=== PATIENT | female | born 1955 | race Caucasian/White ===

== ENCOUNTER → 2019-02-07 08:26 | Outpatient (CLI) | payer OTHER, SELFPAY ==
--- NOTE | 2019-02-07 | DI.MG.S_ITS ---
BILATERAL DIGITAL SCREENING MAMMOGRAM 3D/2D WITH CAD: 02/07/2019 CLINICAL: Routine screening. Comparison is made to exams dated: 10/11/2017 mammogram, 02/26/2013 mammogram, 12/07/2011 mammogram, and 12/01/2010 mammogram - [facility]. The tissue of both breasts is heterogeneously dense. This may lower the sensitivity of mammography. Current study was also evaluated with a Computer Aided Detection (CAD) system. No significant masses, calcifications, or other findings are seen in either breast. There has been no significant interval change. IMPRESSION: NEGATIVE There is no mammographic evidence of malignancy. A 1 year screening mammogram is recommended. This exam was interpreted at Station ID: [id number]. NOTE: For mammograms, a report in lay terms will be sent to the patient. Approximately 15% of breast malignancies will not be visualized mammographically. In the management of a palpable breast mass, a negative mammogram must not discourage biopsy of a clinically suspicious lesion. Electronically Signed By: Eben wade/amador:02/07/2019 13:02:29 letter sent: Normal Exam ACR BI-RADS Category 1: Negative [id number]
== END ==
PROVIDERS: PCP Family Medicine; Visit Provider Family Medicine
DX: Z12.31 Encounter for screening mammogram for malignant neoplasm of breast (principal)
CPT/HCPCS: 77063; 77067

== ENCOUNTER → 2019-06-11 08:50 | Outpatient (CLI) | payer OTHER, SELFPAY ==
--- NOTE | 2019-06-11 | DI.RAD.S_ITS ---
PROCEDURE: FL UPPER GI W AIR INDICATIONS: Dysphagia, unspecified COMPARISON: [facility], , CHEST 2 VIEW, 11/08/2012, 10:38. FINDINGS: KUB: Preprocedural principal investigator film demonstrates a normal bowel gas pattern. No suspicious abdominal calcifications. Visualized solid organ contours appear normal. Bony structures appear unremarkable. Esophagus: Esophageal mucosa is normal on air-contrast views. On single-contrast views, there is normal esophageal peristalsis. No strictures, extrinsic mass effects, or diverticula. Small hiatal hernia. No gastroesophageal reflux was elicited during exam. There is normal transit of a calibrated barium tablet through the esophagus. Stomach: The stomach is normally distensible, with normal rugal fold thickness. No mucosal masses or ulcers. Pylorus and duodenal bulb appear normal in morphology. Duodenal folds are normal in thickness as well. IMPRESSION: 1. Small sliding hiatal hernia. 2. Otherwise normal upper GI exam. 3. The patient reports intermittent difficulty swallowing in the area of the throat. If clinical symptoms persist, modified barium swallow with speech pathology may be helpful. Dictated by: Leonarda Rivera M.D. on 06/11/2019 at 11:20 Approved by: Leonarda Rivera M.D. on 06/11/2019 at 11:23
== END ==
PROVIDERS: PCP Family Medicine; Visit Provider Family Medicine
DX: R13.10 Dysphagia, unspecified (principal); K44.9 Diaphragmatic hernia without obstruction or gangrene
CPT/HCPCS: 74247

== ENCOUNTER → 2019-11-21 09:27 | Outpatient (CLI) | payer OTHER, SELFPAY | PROVIDERS: PCP Family Medicine; Referring Provider Family Medicine; Visit Provider Family Medicine | DX: Z13.820 Encounter for screening for osteoporosis (principal); M85.851 Other specified disorders of bone density and structure, right thigh; Z78.0 Asymptomatic menopausal state; Z87.891 Personal history of nicotine dependence | CPT/HCPCS: 77080 ==

== ENCOUNTER 2020-07-13 15:37 | Emergency (ER) | payer OTHER, SELFPAY ==
[2020-07-13] VITALS (9 sets, daily range): BP systolic 146–175; BP diastolic 69–88; PULSE 68–104; RESP 10–34; TEMP 36.8; O2SAT 94–99; BMI 28.3
--- NOTE | 2020-07-13 15:49 | DI.RAD.S_ITS ---
PROCEDURE: XR WRIST LT 2V INDICATIONS: l wrist deformity TECHNIQUE: 2 views of the wrist were acquired. COMPARISON: None. FINDINGS: Bones: There is a prominently displaced distal radius fracture, with dorsal angulation and partial overlapping of bony fragments. Comminution is seen, with intra-articular involvement. No associated ulnar styloid fracture is seen. No radiocarpal fracture is seen. Age-appropriate bony degenerative changes are seen, which are worst involving the 1st carpometacarpal joint. Soft tissues: No suspicious soft tissue calcifications. IMPRESSION: Dorsally displaced distal radius fracture, with intra-articular involvement and partial overlapping of bony fragments. Dictated by: Davie Madden M.D. on 07/13/2020 at 15:20 Approved by: Davie Madden M.D. on 07/13/2020 at 15:21
--- NOTE | 2020-07-13 16:18 | ED.UPPEXIN ---
HPI - Extremity Injury (Upper) <NAYA Singletary - Last Filed: 07/14/20 00:29> General Chief Complaint: Extremity Injury, Upper Stated Complaint: LEFT WRIST INJURY Time Seen by Provider: 07/13/20 15:54 Source: patient Mode of arrival: Ambulatory Limitations: no limitations History of Present Illness HPI narrative: This is a 65 year old female, former smoker, who has history of hypertension presents to ED with daughter in-law with chief complain of left wrist, non dominant hand, pain and deformity after she fell off of granddaughter's Hover board about one 1 hour ago. Patient reports this an isolated injury and denies hitting her head or injuries to other areas. Patient denies open skin associated with wrist injury. Patient reports intact sensation and is able to move fingers minimally due to pain radiating into wrist. Patient denies history of previous injury to left wrist or hand. Related Data Home Medications Medication Instructions Recorded Confirmed lisinopril-hydrochlorothiazide tab 07/13/20 Previous Rx's Medication Instructions Recorded hydrocodone-acetaminophen [[place]] 1 tab PO Q4-6H PRN #14 tab 07/13/20 Allergies Allergy/AdvReac Type Severity Reaction Status Date / Time No Known Drug Allergies Allergy Verified 07/13/20 16:35 Review of Systems <NAYA Singletary - Last Filed: 07/14/20 00:29> Review of Systems Narrative: General: Denies fever, chills, fatigue, malaise, sweats. Respiratory: Denies dyspnea, cough, wheezing, hemoptysis, sputum. Cardiovascular: Denies chest pain, palpitations, orthopnea, edema. Gastrointestinal: Denies nausea, vomiting, abdominal pain, diarrhea, constipation, melena. Musculoskeletal: See HPI Skin: Denies rash, skin lesions, or other. Patient History <NAYA Singletary - Last Filed: 07/14/20 00:29> Medical History Hypertension (Acute) Social History Smoking Status: Never smoker Smoking Status: Never smoker alcohol intake frequency: 0-2 drinks per day Substance Use Type: does not use Exam <NAYA Singletary Last Filed: 07/14/20 00:29> Narrative Exam Narrative: General appearance: well developed, well nourished, in moderate distress from pain. Head: normocephalic, atraumatic, no scalp lesions, non-tender. ENT: Hearing grossly intact. Airway patent. Neck/Thyroid: neck supple, full range of motion, no visible masses or meningeal signs. No JVD, non-tender without lymphadenopathy. Skin: no suspicious rashes, lesions over visible areas. Warm and dry and appropriate color for ethnicity. Heart: no clubbing, no cyanosis, no edema. S1 and S2 normal. RRR w/o murmurs, clicks, or bruits. Lungs: Breathing even and unlabored. No stridor. No accessory muscles used. Able to speak in full sentences. Chest: normal shape and expansion. Abdomen: non-obese, non-distended. Neurologic: alert and oriented. Cognitive exam, BREAK OUT WORKER and PNS grossly intact on informal exam. Psych: good eye contact, normal affect. Initial Vital Signs Initial Vital Signs: Vital Signs Temperature 98.2 F 07/13/20 15:40 Pulse Rate 68 07/13/20 15:40 Respiratory Rate 18 07/13/20 15:40 Blood Pressure 146/69 H 07/13/20 15:40 Pulse Oximetry 99 07/13/20 15:40 Extrem Left upper extremity: elbow/forearm Details: normal to inspection; no tenderness and no swelling, wrist Details: abnormal to inspection, tenderness, swelling, abnormal ROM Details: held in an abnormal fashion, pain with active ROM and pain with passive ROM, ecchymosis (Distal radial), deformity Details: bayonet, normal vascular exam and radial pulse present; no unusual warmth, no abrasions and no lacerations and hand Details: neurosensory exam normal and vascular exam Details: radial pulse present and normal capillary refill <Jorge Marcos DO - Last Filed: 07/14/20 07:41> Initial Vital Signs Initial Vital Signs: Vital Signs Temperature 98.2 F 07/13/20 15:40 Pulse Rate 68 07/13/20 15:40 Respiratory Rate 18 07/13/20 15:40 Blood Pressure 146/69 H 07/13/20 15:40 Pulse Oximetry 99 07/13/20 15:40 Procedures <STANLEY SingletaryP - Last Filed: 07/14/20 00:29> Orthopedic Splinting/Casting Injury #1: Side: left Upper Extremity Injury Location: wrist Upper Extremity Immobilizer: sling/shoulder immobilizer and sugar tong splint Post splinting neuro exam: intact Post splinting vascular exam: intact Placed by: Provider Procedural Sedation Consent signed: Yes Time out performed: Yes Indication: fracture/dislocation reduction ASA Class: I Mallampati Airway Classification: Class I Time of Last PO Intake: 15:30 Preparation: clinical research monitor applied, pulse oximeter, capnometry used, supplemental O2 applied, suction/airway equipment at bedside and IV secured IV Propofol dose (mg): 80 Intraservice time/total sedation time (min): 5 ED Sedation Level: Moderate (Concious) Patient Tolerated Procedure: Well Complications: none Additional Comments: Procedural sedation and closed reduction completed by Dr. Marcos. Scores <Anton Gely [facility] - Last Filed: 07/14/20 00:29> GCS [place] coma scale eye opening: Spontaneous [place] coma scale verbal response: Orientated [place] coma scale motor response: Obey commands [place] coma scale total score: 15 Course <Anton Gely [facility] - Last Filed: 07/14/20 00:29> Orders Ordered: Discontinued Medications Hydrocodone Bitart/Acetaminophen ([place] 5/325) 1 tab PO NOW ONE Stop: 07/13/20 19:18 Last Admin: 07/13/20 19:21 Dose: 1 tab Documented by: ZAYRA Morphine Sulfate (Morphine) 4 mg IV NOW ONE Stop: 07/13/20 16:19 Last Admin: 07/13/20 16:30 Dose: 4 mg Documented by: ZAYRA Propofol (Diprivan) 70 mg 1 mg/kg (70 mg) IV NOW ONE Stop: 07/13/20 18:12 Last Admin: 07/13/20 18:43 Dose: 70 mg Documented by: ZAYRA Consultations Consultation #1: Dr. Gonsalez consulted with physical findings, x-ray results. He recommended closed reduction and splint affected extremity and have her follow-up at the clinic. Time: 16:45 Vital Signs Vital signs: Vital Signs - 8 hr 07/13/20 16:47 07/13/20 18:38 07/13/20 18:47 Pulse Rate 85 100 H 92 H Respiratory Rate 18 10 L 28 H Blood Pressure 172/79 H 156/74 H Blood Pressure [Right Arm] 175/86 H Pulse Oximetry 99 94 96 07/13/20 18:50 07/13/20 18:51 07/13/20 18:55 Pulse Rate 98 H 84 96 H Respiratory Rate 34 H 16 Blood Pressure 151/79 H 151/76 H Blood Pressure [Right Arm] Pulse Oximetry 95 94 07/13/20 19:00 07/13/20 19:05 Pulse Rate 104 H 98 H Respiratory Rate Blood Pressure 152/88 H 149/84 H Blood Pressure [Right Arm] Pulse Oximetry 95 94 <Jorge Marcos DO - Last Filed: 07/14/20 07:41> Orders Ordered: Discontinued Medications Hydrocodone Bitart/Acetaminophen ([place] 5/325) 1 tab PO NOW ONE Stop: 07/13/20 19:18 Last Admin: 07/13/20 19:21 Dose: 1 tab Documented by: ZAYRA Morphine Sulfate (Morphine) 4 mg IV NOW ONE Stop: 07/13/20 16:19 Last Admin: 07/13/20 16:30 Dose: 4 mg Documented by: ZAYRA Propofol (Diprivan) 70 mg 1 mg/kg (70 mg) IV NOW ONE Stop: 07/13/20 18:12 Last Admin: 07/13/20 18:43 Dose: 70 mg Documented by: ZAYRA Vital Signs Vital signs: Vital Signs - 8 hr 07/13/20 16:47 07/13/20 18:38 07/13/20 18:47 Pulse Rate 85 100 H 92 H Respiratory Rate 18 10 L 28 H Blood Pressure 172/79 H 156/74 H Blood Pressure [Right Arm] 175/86 H Pulse Oximetry 99 94 96 07/13/20 18:50 07/13/20 18:51 07/13/20 18:55 Pulse Rate 98 H 84 96 H Respiratory Rate 34 H 16 Blood Pressure 151/79 H 151/76 H Blood Pressure [Right Arm] Pulse Oximetry 95 94 07/13/20 19:00 07/13/20 19:05 Pulse Rate 104 H 98 H Respiratory Rate Blood Pressure 152/88 H 149/84 H Blood Pressure [Right Arm] Pulse Oximetry 95 94 MDM - Extremity Injury (Upper) <NAYA Singletary - Last Filed: 07/14/20 00:29> Differential Diagnosis Differential diagnosis: Likely fracture of wrist Medical Records Attestation: I reviewed the patient's medical records. Lab Data Attestation: I reviewed the patient's lab results. Labs: Lab Results 07/13/20 Range/Units 17:00 COVID-19 PCR Negative (Negative) Point of Care Testing Test Results Negative Imaging Data XR-Wrist LT: Radiologist's Impression: [address] [address] XRay Report Signed Patient: Dana Becerra [facility]#: [id number] : [id number] Age/Sex: 65 / FDate of Service: 07/13/20 Loc: ED Accession Number: [id number] Procedure: XR wrist LT 2V Ordering Provider: Anton Hong PROCEDURE: XR WRIST LT 2V INDICATIONS: l wrist deformity TECHNIQUE: 2 views of the wrist were acquired. COMPARISON: None. FINDINGS: Bones: There is a prominently displaced distal radius fracture, with dorsal angulation and partial overlapping of bony fragments. Comminution is seen, with intra-articular involvement. No associated ulnar styloid fracture is seen. No radiocarpal fracture is seen. Age-appropriate bony degenerative changes are seen, which are worst involving the 1st carpometacarpal joint. Soft tissues: No suspicious soft tissue calcifications. IMPRESSION: Dorsally displaced distal radius fracture, with intra-articular involvement and partial overlapping of bony fragments. Dictated by: Davie Madden M.D. on 07/13/2020 at 15:20 Approved by: Davie Madden M.D. on 07/13/2020 at 15:21 XR-Wrist LT #2 post reduction: Radiologist's Impression: [address] [address] XRay Report Signed Patient: Dana Becerra [facility]#: [id number] : [id number] Age/Sex: 65 / FDate of Service: 07/13/20 Loc: ED Accession Number: [id number] Procedure: XR wrist LT 2V Ordering Provider: Jorge Marcos D.O. PROCEDURE: XR WRIST LT 2V INDICATIONS: post reduction TECHNIQUE: 2 views of the wrist were acquired. COMPARISON: [facility], CR, XR WRIST LT 2V, 07/13/2020, 15:58. FINDINGS: Bones: A fiberglass splint is present, which obscures fine bony detail. Postreduction images of the previously demonstrated comminuted fracture of the distal radius demonstrates improved alignment. The minimally displaced fracture of the ulnar styloid tip appears unchanged. Soft tissues: No suspicious soft tissue calcifications. Soft tissue edema is seen surrounding the wrist. IMPRESSION: Improved alignment of the previously seen comminuted distal radial fracture. Unchanged minimally displaced ulnar styloid fracture. Dictated by: Cruz Lane M.D. on 07/13/2020 at 19:03 Approved by: Cruz Lane M.D. on 07/13/2020 at 19:05 [facility] Narrative Medical decision making narrative: This is a 65 year female who presents to ED with isolated injury to non dominant hand, left wrist deformity and pain after she had FOOSH after falling off [employer]. No skin injury associated with this. Patient has intact sensation and radial pulse with brisk cap refill. She had limited active range of motion in left wrist and fingers due to pain. Initial x-ray shows prominently displaced distal radial fracture with dorsal angulation and partial overlapping a bony fragment with intra-articular involvement. Dr. Marcos consulted with x-ray test and physical finding. Closed reduction was done with procedural sedation by Dr. Marcos. Affected arm was splinted with sugar tong. Patient reports improved discomfort with brisk cap refill and intact mobility to her fingers. Post x-ray tests improved alignment of the previously seen community distal radial fracture and minimally displaced fracture of the ulna styloid tip. Dr. Gonsalez consulted and recommended to follow up at the clinic after closed reduction has been done. Patient discharged to home with [place] for severe pain with narcotic pain medication precautions. Patient advised RICE therapy and return precautions discussed with patient which she verbalized understanding in agreement with the treatment plan. Sling has been applied on affected arm. <Jorge Marcos, DO - Last Filed: 07/14/20 07:41> Lab Data Labs: Lab Results 07/13/20 Range/Units 17:00 COVID-19 PCR Negative (Negative) Point of Care Testing Test Results Negative Discharge Plan Departure Patient Disposition: Home Clinical Impression: Closed fracture distal radius and ulna Qualifiers: Encounter type: initial encounter Laterality: left Qualified Code(s): S52.502A - Unspecified fracture of the lower end of left radius, initial encounter for closed fracture Discharge Date/Time: 07/13/20 19:33 Instructions: DI for Wrist Fracture Activity Restrictions/Additional Instructions: You have been diagnosed with [dorsally displaced distal radius fracture with intra-articular involvement on non dominant left wrist. Minimally displaced ulnar styloid fracture. Fracture has been reduced by procedural sedation]. What to do: *Take your medications as directed. You can take xcit-mpi-vheaqpy Tylenol and or Motrin as needed for discomfort. Tylenol 650-1000 mg up to 3 to 4 times a day as needed for pain. Ibuprofen 400-600 mg as needed for pain with food to decrease GI irritations. For severe pain you can use [place] (has 325mg of Tylenol mixed) 1 tab every 6-8 hours as needed. [place] is narcotic pain medication so please do not drive, drink alcohol, or operate heavy equipments since he can cause sedation. Also, he can cause constipation so please take additional fluid and high-fiber diet. Can also take [id number]-[id number] stool softener to prevent constipation. Adult can take upto 8528-3271 mg of Tylenol products within 24 hour. Red Oak has been transmitted to [facility]. *Follow up with your primary care provider/[facility] in 2-3 days, call for an appointment. Let them know you were seen in the ED and that we asked you to be seen in follow up. *Return to ED if you have any new, worsening, or concerning symptoms, such as [worsening pain, tingling/numbness/weakness on affected arm, chest pain, breathing difficulty, unable to tolerate fluids, fever, or any acute concerns]. Prescriptions: New hydrocodone-acetaminophen [[place]] 5-325 mg tablet 1 tab PO Q4-6H PRN (Reason: pain) Qty: 14 RF: 0 No Action lisinopril-hydrochlorothiazide 20-25 mg tablet RF: 0 Referrals: [facility] [Provider Group] Attila Aguilar MD [Primary Care Provider] - <Jorge Marcos DO - Last Filed: 07/14/20 07:41> Cosign ED Attending Shelbi Attestation: I was immediately available in the department for consultation. This documentation has been reviewed and I agree with assessment and plan. Supervised by Jorge Marcos, DO
[2020-07-13] MEDS: MORPHINE 4 MG/ML INJ IV (16:30)
[2020-07-13 17:42] LABS: COVID19 -Nasal RAPID Negative (Negative)
[2020-07-13] MEDS: propofoL 200 MG/20 ML VIAL 70 MG IV (18:43)
--- NOTE | 2020-07-13 18:43 | PC.NURSE ---
Provider game 80mg propofol.
--- NOTE | 2020-07-13 18:47 | DI.RAD.S_ITS ---
PROCEDURE: XR WRIST LT 2V INDICATIONS: post reduction TECHNIQUE: 2 views of the wrist were acquired. COMPARISON: [facility], CR, XR WRIST LT 2V, 07/13/2020, 15:58. FINDINGS: Bones: A fiberglass splint is present, which obscures fine bony detail. Postreduction images of the previously demonstrated comminuted fracture of the distal radius demonstrates improved alignment. The minimally displaced fracture of the ulnar styloid tip appears unchanged. Soft tissues: No suspicious soft tissue calcifications. Soft tissue edema is seen surrounding the wrist. IMPRESSION: Improved alignment of the previously seen comminuted distal radial fracture. Unchanged minimally displaced ulnar styloid fracture. Dictated by: Cruz Lane M.D. on 07/13/2020 at 19:03 Approved by: Cruz Lane M.D. on 07/13/2020 at 19:05
[2020-07-13] MEDS: HYDROCODONE/ACET 5/325 TABLET 1 TAB PO (19:21)
== END 2020-07-13 19:33 | disposition home or self-care (01) ==
PROVIDERS: Emergency Provider Nurse Practitioner Family; PCP Family Medicine
DX: S52.502A Unspecified fracture of the lower end of left radius, initial encounter for closed fracture (principal); W19.XXXA Unspecified fall, initial encounter
CPT/HCPCS: 25605; 29125; 73100; 87635; 94770; 96374; 99284; 99285; J2270; J2704

== ENCOUNTER → 2020-07-14 14:11 | Outpatient (CLI) | payer OTHER, SELFPAY ==
[2020-07-15 13:55] LABS: COVID19 Sendout Not Detected (Not Detect)
== END ==
PROVIDERS: PCP Family Medicine; Visit Provider Nurse Practitioner
DX: Z11.59 Encounter for screening for other viral diseases (principal)
CPT/HCPCS: 87635

== ENCOUNTER 2020-07-17 06:40 | Day surgery (SDC) | payer OTHER, SELFPAY ==
[2020-07-15 07:28] VITALS: BMI 23.9
[2020-07-17] VITALS (12 sets, daily range): BP systolic 110–169; BP diastolic 70–95; PULSE 74–92; RESP 11–17; TEMP 36.1–37.1; O2SAT 90–98; BMI 27.4
[2020-07-17] MEDS: LACTATED RINGERS 1,000 ML 42 ML IV (07:19)
[2020-07-17] MEDS: CEFAZOLIN 2 GM/100 ML FROZ.PIGGY IV (07:46)
--- NOTE | 2020-07-17 08:05 | PM.PREOP ---
Pre-operative Note COVID-19 COVID-19 status: Negative Result date/Date tested (Pos, Neg/Pending): 07/15/20 Interval Note History & Physical reviewed/Exam performed by Physician: Yes Changes to H&P: No
--- NOTE | 2020-07-17 08:18 | SUR.OPER ---
Supine on padded OR bed, head on pillow, right arm secured on padded arm board at <90 degrees abduction, left arm on hand table prepped in sterile field legs uncrossed, safety belt at thigh, tape over blanket over lower legs.
[2020-07-17] MEDS: LIDOCAINE 1% 30 ML INJ (08:57)
[2020-07-17] MEDS: BUPIVACAINE 0.25% W/ EPI 30 ML VIAL INJ (08:58)
--- NOTE | 2020-07-17 09:04 | PM.OP.1 ---
Operative Date/Time/Diagnoses Date of procedure: 07/17/20 Time of procedure: 09:04 Pre-op diagnosis: Two part intra-articular distal radius fracture left wrist Post-op diagnosis: same Procedure & Clinicians Procedure: Open reduction internal fixation left distal radius fracture, 2 part intra-articular Same procedure as scheduled: Yes Indications: The patient presents today for open reduction internal fixation of left wrist fracture. The nature of the procedure including the risks and benefits, alternatives, postoperative course and expected outcome were discussed and all questions answered. Consent was obtained. Operative site confirmed and marked. Surgeon: Missael Gonsalez Processing Assistant: Lauren Borden Anesthesia Type: General and Local Operative Notes Findings: The fracture was a 2 part fracture with extension into the joint. The bone was of good quality. In anatomic reduction was obtained. AP and lateral fluoroscopy showed excellent reduction of the fracture and position of the hardware. Closure Type: primary Specimen(s): none sent Prosthetic devices, grafts, tissues, transplants, or devices: Hand innovations locking DVR plate Applied: implant(s) Estimated Blood Loss (mL): 5 Blood products transfused: none Tourniquet time (min): 60 Procedure in detail: Patient was taken operative suite placed under general anesthesia. She was given 2 g of Ancef prior to surgery. The left arm was prepped and draped usual sterile fashion. An 8 cm incision was made directly over the distal aspect of the flexor carpi radialis tendon. The tendon was identified and the inferior tendon sheath incised. Blunt dissection was then carried down to the distal radius. The pronator quadratus was released from the radial side and elevated. The fracture was a 2 part fracture with extension into the joint. The fracture was easily reduced. A small short locking plate was provisionally fixed with K-wires and then checked for positioning on fluoroscopy. Once acceptable position was obtained it was stabilized with a single shaft screw. All of the distal screw holes were then filled with smooth pegs. The 2 remaining shaft screws were filled with bicortical screws. Final AP and lateral fluoroscopy showed excellent reduction of the fracture and good position of the hardware. The wound was copiously irrigated. The subcutaneous tissue was closed with 3-0 Vicryl. The skin was closed with a running 4-0 nylon suture. Xeroform and sterile gauze dressings were applied. She was placed in a well-padded short-arm volar plaster splint. Patient tolerated procedure well was returned recovery in good condition. Complications: none Post-operative Condition: stable Disposition: same day surgery Plan for aftercare: Discharge to home. Patient will keep splint in place until follow-up in approximately 2 weeks. Has prescription for oxycodone for postoperative pain control. Call the clinic for any problems.
[2020-07-17] MEDS: OXYCODONE IR 5 MG TABLET PO ×2 (09:34→09:59)
[2020-07-17] MEDS: fentaNYL 100 MCG/2 ML INJ IV ×2 (09:34→09:42)
--- NOTE | 2020-07-17 09:46 | SUR.PHASEI ---
Left hand: states fingers feel tingly able to move fingers, cap refill < 2 seconds. Gave IV and oral pain medication for c/o 9/10 pain.
[2020-07-17] MEDS: ONDANSETRON 4 MG/2 ML INJ IV (09:59)
--- NOTE | 2020-07-17 10:45 | SUR.PHASEII ---
Discharged patient in stable condition with family. All belongings returned to patient. Patient states she has narcotic prescriptions at home and has a follow-up appointment in place. VSS. Pain 01/25.
== END 2020-07-17 10:42 | disposition home or self-care (01) ==
PROVIDERS: PCP Family Medicine; Referring Provider Orthopaedic Surgery; Visit Provider Orthopaedic Surgery
PROC: (CPT 25608; principal; 2020-07-17 07:45)
DX: S52.592A Other fractures of lower end of left radius, initial encounter for closed fracture (principal); W01.10XA Fall on same level from slipping, tripping and stumbling with subsequent striking against unspecified object, initial encounter; Y92.000 Kitchen of unspecified non-institutional (private) residence as the place of occurrence of the external cause; I10 Essential (primary) hypertension
CPT/HCPCS: 25608; J0690; J1100; J2250; J2405; J2704; J3010

== ENCOUNTER → 2020-11-28 07:37 | Outpatient (CLI) | payer OTHER, SELFPAY ==
[2020-11-28 09:13] LABS: Add Manual Diff / Slide Review NO; Basophils Absolute Auto 100 /uL (0-100); Basophils Percent Auto 1.1 % (0-2); Eosinophils Absolute Auto 200 /uL (0-450); Hematocrit 39.1 % (36-46); Lymphocytes Absolute Auto 1700 /uL (1100-4500); Lymphocytes Percent Auto 25.6 % (25-40); Mean Corpuscular HGB Conc 33.4 % (30-36); Mean Corpuscular Hemoglobin 29.7 PG (26-34); Monocytes Absolute Auto 600 /uL (0-900); Monocytes Percent Auto 9.5 % (3-14); Neutrophils Absolute Auto 4000 /uL (1500-7000); Neutrophils Percent Auto 60.8 % (50-75); Platelet Count 293 X10^3/uL (150-400); Red Blood Cell Count 4.39 X10^6/uL (4.0-5.2); Red Cell Distribution Width 13.2 % (11.6-14.8); White Blood Cell Count 6.7 X10^3/uL (4.5-11.0)
[2020-11-28 09:44] LABS: Alanine Aminotransferase 38 IU/L (<35); Albumin 4.3 g/dL (3.5-5.0); Albumin Globulin Ratio 1.7 (1.0-2.8); Alkaline Phosphatase 90 U/L (38-126); Aspartate Aminotransferase 36 IU/L (14-36); BUN Creatinine Ratio 40.6 (6-22); Bilirubin Total 0.6 mg/dL (0.2-1.3); Blood Urea Nitrogen 28 mg/dL (7-17); Calcium 10.2 mg/dL (8.4-10.2); Carbon Dioxide 30 mmol/L (22-32); Chloride 101 mmol/L (98-107); Cholesterol 211 mg/dL (140-199); Estimated Glomerular Filt Rate > 60.0 mL/min (>60); Globulin 2.6 g/dL (1.7-4.1); Glucose 100 mg/dL (80-110); HDL Cholesterol 62 mg/dL (40-60); HEMOLYSIS < 15 (0-50); LDL Cholesterol Calculated 117 mg/dL (<100); Potassium 4.2 mmol/L (3.4-5.1); Sodium 135 mmol/L (137-145); Total Protein 6.9 g/dL (6.3-8.2); Triglycerides 158 mg/dL (35-150)
[2020-11-28 10:13] LABS: Thyroid Stimulating Hormone 2.45 uIU/mL (0.47-4.68)
== END ==
PROVIDERS: Referring Provider Family Medicine; Visit Provider Family Medicine
DX: Z00.00 Encounter for general adult medical examination without abnormal findings (principal)
CPT/HCPCS: 36415; 80053; 80061; 84443; 85025

== ENCOUNTER → 2021-12-20 10:18 | Outpatient (CLI) | payer OTHER, SELFPAY ==
[2021-12-20 12:02] LABS: BUN Creatinine Ratio 31.5 (6-22); Blood Urea Nitrogen 23 mg/dL (7-17); Estimated Glomerular Filt Rate > 60.0 mL/min (>60)
== END ==
PROVIDERS: PCP Family Medicine; Referring Provider Family Medicine; Visit Provider Family Medicine
DX: R31.29 Other microscopic hematuria (principal)
CPT/HCPCS: 36415; 82565; 84520

== ENCOUNTER → 2021-12-23 11:43 | Outpatient (CLI) | payer OTHER, SELFPAY ==
--- NOTE | 2021-12-23 11:46 | DI.CT.S_ITS ---
PROCEDURE: CT ABDOMEN PELVIS WO/W CON INDICATIONS: Other microscopic hematuria TECHNIQUE: Optional 5 mm thick noncontrast images acquired from the diaphragm to the symphysis pubis. After the administration of intravenous contrast, 5 mm thick images acquired from the diaphragm to the symphysis pubis after a 10-minute delay. 2 mm thick coronal and sagittal reformats were then performed of the kidneys and ureters. For radiation dose reduction, the following was used: automated exposure control, adjustment of mA and/or kV according to patient size. COMPARISON: None. FINDINGS: Image quality: Excellent. Lung bases: Subpleural septal thickening and mild ground-glass infiltrate bilaterally at lung bases. Heart size is normal. Small pericardial effusion. Urinary system: Both kidneys are normal in size, without hydronephrosis or nephrolithiasis on pre-contrast images. No perinephric fat stranding. There is normal bilateral renal enhancement. Small cortical nodules bilaterally are most likely renal cysts. Renal calyces appear normal in morphology when filled with contrast. Opacified portions of both ureters demonstrate normal caliber. Bladder wall thickness is normal. No calcified bladder stones. Other solid organs: Liver is mildly enlarged. Moderate hepatic steatosis. There is a 1 cm hypodense nodule in the left hepatic lobe, most likely a small hepatic cyst or hemangioma. Gallbladder is contracted. No radiopaque gallstones. Biliary system is non dilated. Pancreas enhances normally. Spleen is normal in size and enhancement. No adrenal nodules. Peritoneum and bowel: Bowel loops demonstrate normal wall thickness and caliber. Mild diverticulosis without diverticulitis. No free fluid or air. Nodes and vessels: No retroperitoneal or mesenteric adenopathy by size criteria. Aorta and inferior vena cava are normal in size. Moderate atherosclerotic calcifications. Abdominal wall: No ventral hernias. Pelvis: Uterus is unremarkable. Ovaries are not well seen. No adnexal mass. No pathologic free pelvic fluid. No inguinal hernias or adenopathy. Bones: No suspicious bony lesions. No vertebral body compression fractures. Severe degenerative disc disease at L4-L5. IMPRESSION: 1. A cause for micro hematuria is not identified. 2. Multiple small low-density cortical nodules in kidneys bilaterally, most likely renal cysts. 3. Moderate hepatic steatosis. 4. Mild subpleural septal thickening and ground-glass infiltrates at lung bases bilaterally. 5. Small pericardial effusion. Dictated by: Leonarda Rivera M.D. on 12/23/2021 at 15:36 Approved by: Leonarda Rivera M.D. on 12/23/2021 at 15:43
== END ==
PROVIDERS: PCP Family Medicine; Referring Provider Physician Assistant Medical; Visit Provider Physician Assistant Medical
DX: R31.29 Other microscopic hematuria (principal); N28.9 Disorder of kidney and ureter, unspecified; K76.0 Fatty (change of) liver, not elsewhere classified; R91.8 Other nonspecific abnormal finding of lung field; I31.3 Pericardial effusion (noninflammatory)
CPT/HCPCS: 74178

== ENCOUNTER → 2022-08-08 07:28 | Outpatient (CLI) | payer OTHER, SELFPAY ==
--- NOTE | 2022-08-08 | DI.MG.S_ITS ---
BILATERAL DIGITAL SCREENING MAMMOGRAM 3D/2D WITH CAD: 08/08/2022 CLINICAL: Routine screening. Comparison is made to exams dated: 02/07/2019 mammogram, 10/11/2017 mammogram, and 02/26/2013 mammogram - [facility]. Both breasts are heterogeneously dense, which may obscure small masses (category c / 51-75% glandular tissue). Current study was also evaluated with a Computer Aided Detection (CAD) system. No significant masses, calcifications, or other findings are seen in either breast. There has been no significant interval change. IMPRESSION: NEGATIVE There is no mammographic evidence of malignancy. A 1 year screening mammogram is recommended. Based on the Tyrer Cuzick model (a risk assessment model) the patient's lifetime risk is 6.9% and her 10 year risk is 3.5%. According to the ACR, ACS, and NCCN guidelines, an annual breast MRI exam along with mammogram is recommended if the patient's lifetime risk is 20% or greater. This exam was interpreted at Station ID: [id number]. NOTE: For mammograms, a report in lay terms will be sent to the patient. Approximately 15% of breast malignancies will not be visualized mammographically. In the management of a palpable breast mass, a negative mammogram must not discourage biopsy of a clinically suspicious lesion. Electronically Signed By: Cruz randolph/amador:08/08/2022 11:55:46 letter sent: Normal Exam ACR BI-RADS Category 1: Negative 3341F
== END ==
PROVIDERS: PCP Family Medicine; Referring Provider Family Medicine; Visit Provider Family Medicine
DX: Z12.31 Encounter for screening mammogram for malignant neoplasm of breast (principal)
CPT/HCPCS: 77063; 77067

== ENCOUNTER → 2022-12-06 08:01 | Outpatient (CLI) | payer OTHER, SELFPAY ==
--- NOTE | 2022-12-06 | DI.RAD.S_ITS ---
PROCEDURE: XR KNEE RT 3V INDICATIONS: Pain in right knee TECHNIQUE: 3 views of the knee were acquired. COMPARISON: None. FINDINGS: Bones: No fractures or dislocations. No suspicious bony lesions. There are small intercondylar osteophytes and right lateral femorotibial osteophytes. Soft tissues: No joint effusion. No suspicious soft tissue calcifications. IMPRESSION: Mild osteoarthritis of the right knee. Dictated by: Michelle Avila M.D. on 12/06/2022 at 10:30 Approved by: Michelle Avila M.D. on 12/06/2022 at 10:30
== END ==
PROVIDERS: PCP Family Medicine; Referring Provider Family Medicine; Visit Provider Family Medicine
DX: M25.561 Pain in right knee (principal); M17.11 Unilateral primary osteoarthritis, right knee
CPT/HCPCS: 73562

== ENCOUNTER → 2023-01-02 09:35 | Outpatient (CLI) | payer OTHER, SELFPAY ==
--- NOTE | 2022-12-30 09:48 | DI.DEXA.S_ITS ---
Bone Density Report Name: KEEGAN VALDEZ Age: 67 Sex: Female Ethnicity: White Date of : 1955 Indication: osteopenia; Referring Provider: SERGIO BROWNING Study: Bone densitometry was performed. Exam Date: January 02, 2023 Accession number: [id number] Bone Density: Region BMD T-score Z-score Classification AP Spine(L1-L4) 0.937 -1.0 0.9 Normal Femoral Neck (Left) 0.645 -1.8 -0.2 Osteopenia Total Hip (Left) 0.829 -0.9 0.4 Normal Femoral Neck (Right) 0.607 -2.2 -0.6 Osteopenia Total Hip (Right) 0.775 -1.4 -0.1 Osteopenia Total Hip Mean 0.802 -1.2 0.2 Osteopenia World Health Organization criteria for BMD impression classify patients as: Normal (T-score at or above -1.0), Osteopenia (T-score between -1.0 and -2.5), or Osteoporosis (T-score at or below -2.5). Previous Exams: -- Region Exam Age BMD T-score BMD Change BMD Change Date g/cm2 vs Baseline vs Previous -- AP Spine (L1-L4) 01/02/2023 67 0.937 -1.0 -0.035 (-3.6%)# -0.035 (-3.6%)# 11/21/2019 64 0.972 -0.7 Total Hip(Left) 01/02/2023 67 0.829 -0.9 0.027 (3.4%)# 0.027 (3.4%)# 11/21/2019 64 0.802 -1.1 Total Hip(Right) 01/02/2023 67 0.775 -1.4 0.034 (4.5%)# 0.034 (4.5%)# 11/21/2019 64 0.741 -1.6 -- *Denotes significance at 95% confidence level, LSC for AP Spine = 0.022 g/cm2, LSC for Total Hip = 0.027 g/cm2 # Denotes dissimilar scan types or analysis methods Impression: The patient has low bone mass, based on the Right Femoral Neck T-score. No significant bone loss was observed. Discussion: BONE DENSITY IS LOW AT ONE OR MORE SKELETAL SITES. This patient's lowest T-score is low at one or more skeletal sites. It meets the World Health Organization's (WHO) criteria for ?low bone mass? (T-score between -1.0 and -2.5). The patient's 10-year risk of fracture as calculated by FRAX is less than the threshold where pharmacological therapy is recommended by the National Osteoporosis Foundation (NOF). However, all treatment decisions require clinical judgment and consideration of individual patient factors, including patient preferences, comorbidities, previous drug use, risk factors not captured in the FRAX model (e.g., frailty, falls, vitamin D deficiency, increased bone turnover, interval significant decline in bone density) and possible under or overestimation of fracture risk by FRAX. The patient should follow a healthful lifestyle (good nutrition with adequate calcium and vitamin D, and appropriate weight-bearing exercise). Follow-Up: Consider repeating this study in 2 to 3 years to reassess this patient's status, or sooner if there is some new clinical indication. Reported by: JOHANNE BA M.D on 01/02/2023 9:55:00 AM.A
== END ==
PROVIDERS: PCP Family Medicine; Referring Provider Family Medicine; Visit Provider Family Medicine
DX: M85.851 Other specified disorders of bone density and structure, right thigh (principal); Z78.0 Asymptomatic menopausal state
CPT/HCPCS: 77080

== ENCOUNTER → 2023-06-02 12:31 | Outpatient (CLI) | payer OTHER, SELFPAY ==
--- NOTE | 2023-06-02 | DI.RAD.S_ITS ---
PROCEDURE: XR LUMBAR SPINE 2-3V INDICATIONS: chronic SI joint pain, degeneration of lumbar or lumbosacral TECHNIQUE: 3 views of the lumbar spine were acquired. COMPARISON: None. FINDINGS: Bones: 5 [id number] vertebrae are present. There is slight levo scoliotic bony alignment. No vertebral body compression fractures. There is mild degenerative disc height reduction at the thoracolumbar junction, and grade 1 anterolisthesis of L3 on L4 associated with moderate bilateral facet osteoarthritis. Moderate degenerative disc height reduction is also present at L4-5 and L5-S1 with moderate to moderately severe facet osteoarthritis at these levels and there is no subluxation at L4-5 or L5-S1 but significant spinal and foraminal stenosis from L3 inferiorly likely is present No suspicious bony lesions. Soft tissues: Overlying bowel gas pattern is normal. No suspicious soft tissue calcifications. IMPRESSION: No acute disease, chronic mild to moderate degenerative disc disease and facet osteoarthritis with likelihood of significant spinal and foraminal stenosis from L3 through S1. Grade 1 anterolisthesis is predominantly due to facet osteoarthritic change at L3-4. Dictated by: Delroy Fontana M.D. on 06/02/2023 at 15:13 Approved by: Delroy Fontana M.D. on 06/02/2023 at 15:15
== END ==
PROVIDERS: PCP Family Medicine; Referring Provider Family Medicine; Visit Provider Family Medicine
DX: M51.37 Other intervertebral disc degeneration, lumbosacral region (principal); M51.36 Other intervertebral disc degeneration, lumbar region; M47.816 Spondylosis without myelopathy or radiculopathy, lumbar region; M47.817 Spondylosis without myelopathy or radiculopathy, lumbosacral region; M43.16 Spondylolisthesis, lumbar region; M53.3 Sacrococcygeal disorders, not elsewhere classified; G89.29 Other chronic pain
CPT/HCPCS: 72100

== ENCOUNTER → 2023-10-02 08:11 | Outpatient (CLI) | payer OTHER, SELFPAY ==
--- NOTE | 2023-10-02 08:12 | DI.MG.S_ITS ---
BILATERAL DIGITAL SCREENING MAMMOGRAM 3D/2D WITH CAD: 10/02/2023 CLINICAL: Routine screening. Comparison is made to exams dated: 08/08/2022 mammogram, 02/07/2019 mammogram, and 10/11/2017 mammogram - [facility]. There are scattered areas of fibroglandular density in both breasts (category b / 25%-50% glandular tissue). Current study was also evaluated with a Computer Aided Detection (CAD) system. No significant masses, calcifications, or other findings are seen in either breast. There has been no significant interval change. IMPRESSION: NEGATIVE There is no mammographic evidence of malignancy. A 1 year screening mammogram is recommended. Based on the Tyrer Cuzick model (a risk assessment model) the patient's lifetime risk is 4.4% and her 10 year risk is 2.3%. According to the ACR, ACS, and NCCN guidelines, an annual breast MRI exam along with mammogram is recommended if the patient's lifetime risk is 20% or greater. This exam was interpreted at Station ID: [id number]. NOTE: For mammograms, a report in lay terms will be sent to the patient. Approximately 15% of breast malignancies will not be visualized mammographically. In the management of a palpable breast mass, a negative mammogram must not discourage biopsy of a clinically suspicious lesion. Electronically Signed By: Estelita chawla/maador:10/02/2023 10:28:48 letter sent: Normal Exam ACR BI-RADS Category 1: Negative 3341F
== END ==
PROVIDERS: PCP Family Medicine; Referring Provider Family Medicine; Visit Provider Family Medicine
DX: Z12.31 Encounter for screening mammogram for malignant neoplasm of breast (principal); R92.321 Mammographic fibroglandular density, right breast
CPT/HCPCS: 77063; 77067

== ENCOUNTER 2024-08-11 06:06 | Emergency (ER) | payer OTHER, SELFPAY ==
[2024-08-11 06:09] VITALS: BP 163/95; PULSE 90; RESP 18; TEMP 36.2; O2SAT 96; BMI 28.8
--- NOTE | 2024-08-11 06:10 | ED_ITS ---
HPI - Skin/Abscess/Foreign Bdy General Chief complaint: Wound/Laceration Stated complaint: lt thumb injury Time Seen by Provider: 08/11/24 06:06 History of Present Illness HPI narrative: R hand dominant patient presents for accidental left hand laceration. She was cutting cabbage for soup and accidentally sliced the base of her thumb. She applied pressure and presented for evaluation. Reports a numb sensation at the tip of her thumb, however she is able to move her thumb like normal. She is afraid she may have damaged a nerve. Related Data Home Medications Medication Instructions Recorded Confirmed lisinopril 20 1 tab PO DAILY 07/13/20 07/17/20 mg-hydrochlorothiazide 25 mg tablet Previous Rx's Medication Instructions Recorded hydrocodone 5 mg-acetaminophen 325 1 tab PO Q4-6H PRN pain #14 tabs 07/13/20 mg tablet ([place]) Allergies Allergy/AdvReac Type Severity Reaction Status Date / Time No Known Drug Allergies Allergy Verified 07/17/20 07:01 Patient History Medical History Hypertension Surgical History Hx of colonoscopy Social History household members: family Smoking Status: Former smoker alcohol intake: current Smoking Status: Former smoker alcohol intake frequency: a few times a week Substance Use Type: does not use Exam Initial Vital Signs Initial Vital Signs: Vital Signs Temperature 97.1 F L 08/11/24 06:09 Pulse Rate 90 08/11/24 06:09 Respiratory Rate 18 08/11/24 06:09 Blood Pressure 163/95 H 08/11/24 06:09 Pulse Oximetry 96 08/11/24 06:09 Oxygen Delivery Method Room Air 08/11/24 06:09 Const: Awake, alert, no acute distress, nontoxic appearing MSK: able to move thumb in full flexion, extension, and opposition Skin: 1.5cm horizontal laceration across base of L thumb in webbing crease Neuro: AO x3, decreased pain sensation L thumb Procedures Laceration Repair Laceration 1: Site: hand Side (If applicable): left Size (cm): 1.5 Description: linear Depth: simple, single layer Local Anesthetic: lidocaine 1% Amount of anesthesia used (mL): 1 Pre-repair: wound explored, irrigated extensively and deep structures intact Skin layer closed with: nylon Skin layer suture size: 5-0 Number of sutures: 1 Course Orders Ordered: Discontinued Medications Lidocaine HCl (Lidocaine 1% 20 Ml) 20 ml INJ INTRA-OP ONE Stop: 08/11/24 06:42 Lidocaine/Prilocaine (Lidocaine/Prilocaine 5 Gm) 5 gm TOP NOW ONE Stop: 08/11/24 06:10 Last Admin: 08/11/24 06:17 Dose: 5 gm Vital Signs Vital signs: Vital Signs - 8 hr 08/11/24 06:09 Temperature 97.1 F L Pulse Rate 90 Respiratory Rate 18 Blood Pressure 163/95 H Pulse Oximetry 96 Oxygen Delivery Method Room Air MDM - Skin/Abscess/Foreign Bdy MDM Narrative Medical decision making narrative: accidental L thumb laceration. Decreased sensation over medial aspect and tip of thumb, however movement and strength intact. Based on the depth and location of laceration sutures likely needed. Patient extremely hesitant to have injection for lidocaine administration, so will attempt prilocaine. Discharge Plan Departure Patient Disposition: Home Clinical Impression: Laceration of thumb Instructions: DI for Laceration Repair Activity Restrictions/Additional Instructions: The laceration of your thumb was repaired with sutures, these will need to be removed in 5-7 days. For the numbness you are experiencing in your thumb a referral has been placed to the [facility] hand clinic. Please call [phone] to make an appointment. Keep your sutures clean and dry. If you get them wet pat them dry, do not scrub, otherwise the suture can come undone. If you are using your hands wear a dressing. Prescriptions: No Action lisinopril-hydrochlorothiazide 20-25 mg tablet 1 tab PO DAILY Patient Comments: take 1 tablet by mouth once daily for blood pressure CONTROL hydrocodone-acetaminophen [[place]] 5-325 mg tablet 1 tab PO Q4-6H PRN (Reason: pain) Qty: 14 0RF Referrals: Brandan Tripathi MD [Primary Care Provider] - Stand Alone Forms: Patient Portal/API/Survey, Work Release Note
[2024-08-11] MEDS: LIDOCAINE/PRILOCAINE 5 GM TOP (06:17)
[2024-08-11] MEDS: LIDOCAINE 1% 20 ML INJ (06:59)
== END 2024-08-11 07:04 | disposition home or self-care (01) ==
PROVIDERS: Emergency Provider Emergency Medicine; PCP Family Medicine
DX: S61.012A Laceration without foreign body of left thumb without damage to nail, initial encounter (principal); W26.0XXA Contact with knife, initial encounter
CPT/HCPCS: 12001; 99283

== ENCOUNTER → 2025-02-03 08:51 | Outpatient (CLI) | payer OTHER, SELFPAY ==
--- NOTE | 2025-02-03 08:53 | DI.MG.S_ITS ---
MM screening mammo BI: 02/03/2025. BI-RADS: 0 CLINICAL: 69-year old female for bilateral screening mammogram. Tyrer-Cuzick lifetime risk of 3.1%. No personal or first-degree family history of breast cancer. PRIOR EXAMS 10/02/2023, 08/08/2022, 02/07/2019, 10/11/2017. MAMMOGRAPHY TECHNIQUE: 2D and 3D (tomosynthesis) digital mammographic views obtained, with additional images as needed for full coverage. Current study was also evaluated with a Computer Aided Detection (CAD) system. DENSITY B. There are scattered areas of fibroglandular density. MAMMOGRAPHY FINDINGS Right: No suspicious mass, asymmetry, microcalcification, or other abnormality seen. Left: Upper at 12:00, Middle depth: Focal asymmetry needing additional imaging evaluation. IMPRESSION: Right * No evidence of malignancy. Left (Asymmetry): Upper at 12:00, Middle depth * Incomplete - focal asymmetry needing additional imaging evaluation. RECOMMENDATIONS Left: Upper at 12:00, Middle depth * Further evaluation with diagnostic mammography and diagnostic ultrasound. Ultrasound to be performed only if needed. OVERALL ASSESSMENT CATEGORY BI-RADS-0: Incomplete - Need Additional Imaging Evaluation. ELECTRONICALLY SIGNED: Grant Neri M.D. on 02/03/2025 at 05:37:26 PM PT Interpreting Station ID: [id number]
== END ==
PROVIDERS: PCP Family Medicine; Referring Provider Family Medicine; Visit Provider Family Medicine
DX: Z12.31 Encounter for screening mammogram for malignant neoplasm of breast (principal); R92.8 Other abnormal and inconclusive findings on diagnostic imaging of breast
CPT/HCPCS: 77063; 77067

== ENCOUNTER 2025-09-07 08:22 | Observation (INO) | payer OTHER, SELFPAY ==
[2025-09-07] VITALS (21 sets, daily range): BP systolic 118–200; BP diastolic 68–92; PULSE 84–99; RESP 12–27; TEMP 36.4–37.3; O2SAT 92–100; BMI 28.2
--- NOTE | 2025-09-07 08:23 | DI.CT.S_ITS ---
PROCEDURE: CT STROKE INDICATIONS: Code Stroke TECHNIQUE: Noncontrast 4.5 mm thick angled axial sections acquired from the foramen magnum to the vertex, with coronal reformats. For radiation dose reduction, the following was used: automated exposure control, adjustment of mA and/or kV according to patient size. COMPARISON: None. FINDINGS: Image quality: Diagnostic. CSF spaces: Basal cisterns are patent. No extra-axial fluid collections. The ventricles are symmetric in size and shape. Brain: No intracranial bleeds or mass effect. There is cerebral volume loss, with resultant ventricular and sulcal prominence. There are periventricular and deep white matter chronic small vessel ischemic changes. There is intracranial internal carotid artery atherosclerosis. Skull and face: Calvarium and visualized facial bones appear intact, without suspicious lesions. Sinuses: There is moderate mucosal thickening within the left maxillary sinus. Milder mucosal thickening is seen elsewhere within the paranasal sinuses. No abnormal fluid is seen within the mastoid air cells. IMPRESSION: No acute intracranial pathology. No acute intracranial hemorrhage is seen. Additional findings: Focal left maxillary sinus disease Note: Case discussed by telephone with Dr. Ortega at 8:36 a.m. [place] time on September 07, 2025. This study fulfills neurological imaging criteria for inclusion or exclusion of acute stroke therapies based on available published neurological guidelines. Dictated by: Davie Madden M.D. on 09/07/2025 at 7:35 Approved by: Davie Madden M.D. on 09/07/2025 at 7:36
--- NOTE | 2025-09-07 08:23 | DI.CT.S_ITS ---
PROCEDURE: CT ANGIO HEAD AND NECK INDICATIONS: r/o stroke TECHNIQUE: After the administration of intravenous contrast, 1 mm thick sections acquired from the aortic arch through the [place] of [place]. 3-dimensional jxdwmpw-hstbfjowa-prpgtifewa (MIP) and/or volume rendering reformats were acquired of the central intracranial vasculature and neck separately. For radiation dose reduction, the following was used: automated exposure control, adjustment of mA and/or kV according to patient size. COMPARISON: [facility], CT, CT STROKE, 09/07/2025, 8:22. FINDINGS: Image quality: Limited by bolus timing, with venous contamination. Cerebral CT Angiogram: Internal carotid arteries: No acute findings. Intracranial ICA are patent with no significant stenosis. No occlusion. No aneurysm. Anterior cerebral arteries: Unremarkable. No significant stenosis. No occlusion. No aneurysm. Middle cerebral arteries: Unremarkable. No significant stenosis. No occlusion. No aneurysm. Posterior cerebral arteries: Unremarkable. No significant stenosis. No occlusion. No aneurysm. Basilar artery: Unremarkable. No significant stenosis. No occlusion. No aneurysm. Vertebral arteries: Unremarkable as visualized. Dural venous sinuses: Unremarkable given phase of enhancement. Other: Arterial phase appearance of the brain parenchyma is unremarkable. Neck CT Angiogram: Internal carotid arteries: Atherosclerotic irregularity and calcification can be seen involving the right carotid bifurcation region. There is up to 70% stenosis seen involving the right proximal internal carotid artery. No significant stenosis. No dissection or occlusion. Note is made of medialization and tortuosity the of the internal carotid arteries. Common carotid arteries: Unremarkable. No significant stenosis. No dissection or occlusion. External carotid arteries: Unremarkable. No occlusion. Vertebral arteries: Unremarkable. No significant stenosis. No dissection or occlusion. Aortic Arch and Mediastinum: Partially visualized aortic arch unremarkable without evidence of aneurysm. Origins of the great vessels unremarkable. Other: Moderate cervical spine degenerative change is seen. Mild emphysematous changes can be seen at the lung apices. IMPRESSION: No significant intracranial arterial abnormality is seen. Focal calcification and irregularity can be seen involving the right carotid bifurcation region with up to 70% narrowing involving the right proximal internal carotid artery. Additional findings: Moderate cervical spine degenerative change Any quantitative measurements of stenosis were performed using NASCET criteria. Dictated by: Davie Madden M.D. on 09/07/2025 at 7:48 Approved by: Davie Madden M.D. on 09/07/2025 at 7:51
--- NOTE | 2025-09-07 08:25 | EKG_ITS ---
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
--- NOTE | 2025-09-07 08:25 | DI.RAD.S_ITS ---
PROCEDURE: XR CHEST 1V INDICATIONS: Possible stroke TECHNIQUE: One view of the chest was acquired. COMPARISON: [facility], CT, CT ANGIO HEAD AND NECK, 09/07/2025, 8:22. [facility], CT, CT STROKE, 09/07/2025, 8:22. FINDINGS: Surgical changes and devices: Left axillary/left breast clips are seen. Lungs and pleura: An incomplete inspiratory result is noted, causing a crowded appearance to the lung markings. No focal infiltrates are seen. No pneumothorax or significant pleural effusions are seen. Mediastinum: Mediastinal contours appear normal. Heart size is normal. Bones and chest wall: No suspicious bony lesions. Age-appropriate bony degenerative changes are seen. Overlying soft tissues appear unremarkable. IMPRESSION: Low lung volumes, without an acute abnormality seen by plain film. Postoperative and degenerative changes are seen. Dictated by: Davie Madden M.D. on 09/07/2025 at 8:26 Approved by: Davie Madden M.D. on 09/07/2025 at 8:26
--- NOTE | 2025-09-07 08:39 | ED_ITS ---
HPI - Altered Mental Status General Chief Complaint: Neuro Symptoms/Deficit Stated Complaint: CODE Stroke Time Seen by Provider: 09/07/25 08:29 History of Present Illness HPI narrative: 70y F history of hypertension presents with confusion weakness difficulty forming words and concentrating she believes it started at 5:00 a.m. this morning after attempting to feed her cat for which patient then was able to call EMS to be transported here. Patient report sided weakness, slurred speech, and right eye unable to see the right side. Other than what is stated 14 pt ROS is negative. Related Data Home Medications ?Medication ?Instructions ?Recorded ?Confirmed lisinopril 20 1 tab PO DAILY 07/13/20 10/3 0/20 mg-hydrochlorothiazide 25 mg tablet Previous Rx's ?Medication ?Instructions ?Recorded hydrocodone 5 mg-acetaminophen 325 1 tab PO Q4-6H PRN pain #14 tabs 07/13/20 mg tablet ([place]) Allergies Allergy/AdvReac Type Severity Reaction Status Date / Time No Known Drug Allergies Allergy Verified 07/17/20 07:01 Review of Systems Review of Systems ROS Unobtainable: All systems reviewed & are unremarkable except as noted in HPI and below Patient History Medical History Hypertension Surgical History Hx of colonoscopy Social History household members: family Smoking Status: Former smoker alcohol intake: current alcohol intake frequency: a few times a week Exam Narrative Exam Narrative: GENERAL: [70] year old patient appears stated age. Well-developed patient, in mild distress. HEAD: Atraumatic. Normocephalic. EYES: Pupils equal round and reactive. Extraocular motions intact. No scleral icterus. No injection or drainage. ENT: Nose without bleeding, purulent drainage. Throat without erythema, tonsillar hypertrophy or exudate. Airway patent. NECK: Trachea midline. Non tender CARDIOVASCULAR: Regular rate and rhythm without murmurs, gallops, or rubs. RESPIRATORY: Clear to auscultation. Breath sounds equal bilaterally. No wheezes, rales, or rhonchi. GASTROINTESTINAL: Abdomen soft, non-tender, nondistended. EXTREMITIES: No edema or joint tenderness. BACK: Nontender without deformity or crepitance. No flank tenderness. NEURO: AOx2. GCS 15 SKIN: No rash or erythema of visible areas Initial Vital Signs Initial Vital Signs: Vital Signs Temperature 98.3 F 09/07/25 08:20 Pulse Rate 98 H 09/07/25 08:20 Respiratory Rate 26 H 09/07/25 08:20 Blood Pressure 200/92 H 09/07/25 08:20 Pulse Oximetry 95 09/07/25 08:20 Oxygen Delivery Method Room Air 09/07/25 08:20 Scores NIH Stroke Scale Level of Conciousness: Alert, keenly responsive Ask month/age: Answers both questions correctly. Open/close eyes, close hand: Performs both tasks correctly Best gaze horizontal: Partial gaze palsy, can be overcome by finger tracking, head turning Visual lopez: Partial hemianopia Facial palsy: Normal symetrical movement Left arm drift: No drift for full 10 sec Right arm drift: Drifts down, not to bed Left leg drift: No drift for full 5 sec Right leg drift: Drifts down, not to bed Limb ataxia: Absent Sensory on face/arms/legs: Normal, no sensory loss Best language: No aphasia, normal Dysarthria: Normal Extinction or inattention: No abnormality Total NIH Stroke scale score: 4 Course Orders Ordered: ED Orders 09/07/25 08:20 Complete Blood Count AUTO DIFF Stat Comprehensive Metabolic Panel Stat PTT Partial Thromboplastin Jovany Stat Prothrombin Time INR Stat Troponin & CK Cardiac Panel Stat 09/07/25 08:[address] angio head and neck Stat 09/07/25 08:25 XR chest 1V Stat EKG-12 Lead Stat 09/07/25 08:56 US carotid doppler BI Stat 09/07/25 08:57 MR head/brain wo con Stat 09/07/25 10:30 Urinalysis and Microscopic Stat Urine Drug Screen, Rapid Stat Ondansetron HCl (Ondansetron 4 Mg Odt) 4 mg PO NOW PRN PRN Reason: Nausea And Vomiting Discontinued Medications Aspirin (Aspirin Ec 325 Mg Tablet) 325 mg PO NOW ONE Stop: 09/07/25 08:57 Last Admin: 09/07/25 09:55 Dose: 325 mg Documented By: LONG Clopidogrel Bisulfate (Clopidogrel 75 Mg Tablet) 300 mg PO NOW ONE Stop: 09/07/25 08:57 Last Admin: 09/07/25 09:55 Dose: 300 mg Documented By: LONG Ondansetron HCl (Ondansetron 4 Mg/2 Ml Inj) 4 mg IV NOW PRN PRN Reason: Nausea And Vomiting Last Admin: 09/07/25 08:53 Dose: 4 mg Documented By: TC Vital Signs Vital signs: Vital Signs - 8 hr 09/07/25 08:20 09/07/25 08:32 09/07/25 08:33 Temperature 98.3 F Pulse Rate 98 H 97 H 99 H Respiratory Rate 26 H 20 22 Blood Pressure 200/92 H Pulse Oximetry 95 96 97 Oxygen Delivery Method Room Air Oxygen Flow Rate 09/07/25 08:33 09/07/25 09:00 09/07/25 09:00 Temperature Pulse Rate 90 Respiratory Rate 15 Blood Pressure 200/92 H 164/77 H Pulse Oximetry 97 Oxygen Delivery Method Nasal Cannula Oxygen Flow Rate 3 MDM - Altered Mental Status Lab Data 09/07/25 08:20 09/07/25 08:20 Labs: Lab Results 09/07/25 09/07/25 09/07/25 Range/Units 08:20 08:28 10:30 WBC 11.9 H (4.5-11.0) X10^3/uL RBC 4.81 (4.0-5.2) X10^6/uL Hgb 14.2 (12.0-16.0) g/dL Hct 41.6 (36-46) % MCV 86.5 (80-100) fL MCH 29.5 (26-34) PG MCHC 34.1 (30-36) % RDW 12.4 (11.6-14.8) % Plt Count 348 (150-400) X10^3/uL Neut % (Auto) 85.5 H (50-75) % Lymph % (Auto) 11.2 L (25-40) % Ballard % (Auto) 2.7 L (3-14) % Eos % (Auto) 0.2 L (2-4) % Baso % (Auto) 0.4 (0-2) % Neut # (Auto) 09152 H (5733-6989) /uL Lymph # (Auto) 1300 (2242-1838) /uL Ballard # (Auto) 300 (0-900) /uL Eos # (Auto) 0 (0-450) /uL Baso # (Auto) 0 (0-100) /uL PT 10.5 (9.4-12.5) SECONDS INR 0.9 (0.9-1.3) APTT 29 (25.1-36.5) SECONDS Sodium 137 (137-145) mmol/L Potassium 3.5 (3.4-5.1) mmol/L Chloride 101 (98-107) mmol/L Carbon Dioxide 26 (22-32) mmol/L BUN 15 (7-17) mg/dL Creatinine 0.57 (0.52-1.04) mg/dL Estimated GFR > 60 (>60) mL/min BUN/Creatinine Ratio 26.3 H (6-22) Glucose 137 H (70-99) mg/dL POC Whole Bld Glucose 138 H (70-99) mg/dL Calcium 10.2 (8.4-10.2) mg/dL Total Bilirubin 0.7 (0.2-1.3) mg/dL AST 35 (14-36) IU/L ALT 39 H (<35) IU/L Alkaline Phosphatase 95 (38-126) U/L Total Creatine Kinase 57 (30-135) U/L Troponin I 0.082 H (0.01-0.034) ng/mL Total Protein 8.0 (6.3-8.2) g/dL Albumin 4.8 (3.5-5.0) g/dL Globulin 3.2 (1.7-4.1) g/dL Albumin/Globulin Ratio 1.5 (1.0-2.8) Urine Color Yellow Urine Appearance Clear Urine pH 7.5 (4.5-8.0) Ur Specific [place] 1.010 (1.000-1.035) Urine Protein Negative (Negative) Urine Glucose (UA) Negative (Negative) g/dL Urine Ketones 1+ H (NEGATIVE) Urine Occult Blood Negative (Negative) Urine Nitrate Negative (Negative) Urine Bilirubin Negative (NEGATIVE) Urine Urobilinogen 0.2 (0.2) E.U./dL Ur Leukocyte Esterase Negative (NEGATIVE) Urine RBC None seen (0-5/HPF) Urine WBC None seen (0-5/HPF) Ur Squamous Epith Cells None seen (0-5/HPF) Urine Bacteria None seen (None) Ur Culture Indicated? Cult not indicated Vol Urine Centrifuged 10ml (spun) U Opiates 300ng/mL cut Negative (Negative) Ur Oxycodone Screen Negative (Negative) Urine Methadone Screen Negative (Negative) Ur Barbiturates Screen Negative (Negative) U Tricyclic Antidepress Negative (Negative) Ur Phencyclidine Scrn Negative (Negative) Ur Amphetamines Screen Negative (Negative) U Methamphetamines Scrn Negative (Negative) Ur MDMA Scrn (Ecstasy) Negative (Negative) U Benzodiazepines Scrn Negative (Negative) Urine Cocaine Screen Negative (Negative) U Marijuana (THC) Screen Negative (Negative) Urine Specific [place] (Normal) Ur Creatinine (Normal) 09/07/25 Range/Units 10:30 WBC (4.5-11.0) X10^3/uL RBC (4.0-5.2) X10^6/uL Hgb (12.0-16.0) g/dL Hct (36-46) % MCV (80-100) fL MCH (26-34) PG MCHC (30-36) % RDW (11.6-14.8) % Plt Count (150-400) X10^3/uL Neut % (Auto) (50-75) % Lymph % (Auto) (25-40) % Ballard % (Auto) (3-14) % Eos % (Auto) (2-4) % Baso % (Auto) (0-2) % Neut # (Auto) (6369-5859) /uL Lymph # (Auto) (0481-9603) /uL Ballard # (Auto) (0-900) /uL Eos # (Auto) (0-450) /uL Baso # (Auto) (0-100) /uL PT (9.4-12.5) SECONDS INR (0.9-1.3) APTT (25.1-36.5) SECONDS Sodium (137-145) mmol/L Potassium (3.4-5.1) mmol/L Chloride (98-107) mmol/L Carbon Dioxide (22-32) mmol/L BUN (7-17) mg/dL Creatinine (0.52-1.04) mg/dL Estimated GFR (>60) mL/min BUN/Creatinine Ratio (6-22) Glucose (70-99) mg/dL POC Whole Bld Glucose (70-99) mg/dL Calcium (8.4-10.2) mg/dL Total Bilirubin (0.2-1.3) mg/dL AST (14-36) IU/L ALT (<35) IU/L Alkaline Phosphatase (38-126) U/L Total Creatine Kinase (30-135) U/L Troponin I (0.01-0.034) ng/mL Total Protein (6.3-8.2) g/dL Albumin (3.5-5.0) g/dL Globulin (1.7-4.1) g/dL Albumin/Globulin Ratio (1.0-2.8) Urine Color Urine Appearance Urine pH Normal (4.5-8.0) Ur Specific [place] (1.000-1.035) Urine Protein (Negative) Urine Glucose (UA) (Negative) g/dL Urine Ketones (NEGATIVE) Urine Occult Blood (Negative) Urine Nitrate (Negative) Urine Bilirubin (NEGATIVE) Urine Urobilinogen (0.2) E.U./dL Ur Leukocyte Esterase (NEGATIVE) Urine RBC (0-5/HPF) Urine WBC (0-5/HPF) Ur Squamous Epith Cells (0-5/HPF) Urine Bacteria (None) Ur Culture Indicated? Vol Urine Centrifuged U Opiates 300ng/mL cut (Negative) Ur Oxycodone Screen (Negative) Urine Methadone Screen (Negative) Ur Barbiturates Screen (Negative) U Tricyclic Antidepress (Negative) Ur Phencyclidine Scrn (Negative) Ur Amphetamines Screen (Negative) U Methamphetamines Scrn (Negative) Ur MDMA Scrn (Ecstasy) (Negative) U Benzodiazepines Scrn (Negative) Urine Cocaine Screen (Negative) U Marijuana (THC) Screen (Negative) Urine Specific [place] Normal (Normal) Ur Creatinine Normal (Normal) Point of Care Testing Glucose POC [address] scan - head: Radiologist's Impression: [address] [address] [address] Scan Report Signed Patient: Dana Becerra MR#: [id number] : 1955 Acct:[id number] Age/Sex: 70 / F Date of Service: 09/07/25 Loc: ED Accession Number: [id number] Procedure: CT Stroke Ordering Provider: Maurilio Ortega D.O. PROCEDURE: CT STROKE INDICATIONS: Code Stroke TECHNIQUE: Noncontrast 4.5 mm thick angled axial sections acquired from the foramen magnum to the vertex, with coronal reformats. For radiation dose reduction, the following was used: automated exposure control, adjustment of mA and/or kV according to patient size. COMPARISON: None. FINDINGS: Image quality: Diagnostic. CSF spaces: Basal cisterns are patent. No extra-axial fluid collections. The ventricles are symmetric in size and shape. Brain: No intracranial bleeds or mass effect. There is cerebral volume loss, with resultant ventricular and sulcal prominence. There are periventricular and deep white matter chronic small vessel ischemic changes. There is intracranial internal carotid artery atherosclerosis. Skull and face: Calvarium and visualized facial bones appear intact, without suspicious lesions. Sinuses: There is moderate mucosal thickening within the left maxillary sinus. Milder mucosal thickening is seen elsewhere within the paranasal sinuses. No abnormal fluid is seen within the mastoid air cells. IMPRESSION: No acute intracranial pathology. No acute intracranial hemorrhage is seen. Additional findings: Focal left maxillary sinus disease Note: Case discussed by telephone with Dr. Ortega at 8:36 a.m. [place] time on September 07, 2025. CTA - brain/neck: Radiologist's Impression: [place] [address] CT Scan Report Signed Patient: Dana Becerra MR#: [id number] : 1955 Acct:[id number] Age/Sex: 70 / F Date of Service: 09/07/25 Loc: Accession Number: [id number] Procedure: CT angio head and neck Ordering Provider: Maurilio Ortega D.O. PROCEDURE: CT ANGIO HEAD AND NECK INDICATIONS: r/o stroke TECHNIQUE: After the administration of intravenous contrast, 1 mm thick sections acquired from the aortic arch through the [place] of [place]. 3-dimensional ikqojuq-ldogzouxv-qsgikwgivi (MIP) and/or volume rendering reformats were acquired of the central intracranial vasculature and neck separately. For radiation dose reduction, the following was used: automated exposure control, adjustment of mA and/or kV according to patient size. COMPARISON: [facility], CT, CT STROKE, 09/07/2025, 8:22. FINDINGS: Image quality: Limited by bolus timing, with venous contamination. Cerebral CT Angiogram: Internal carotid arteries: No acute findings. Intracranial ICA are patent with no significant stenosis. No occlusion. No aneurysm. Anterior cerebral arteries: Unremarkable. No significant stenosis. No occlusion. No aneurysm. Middle cerebral arteries: Unremarkable. No significant stenosis. No occlusion. No aneurysm. Posterior cerebral arteries: Unremarkable. No significant stenosis. No occlusion. No aneurysm. Basilar artery: Unremarkable. No significant stenosis. No occlusion. No aneurysm. Vertebral arteries: Unremarkable as visualized. Dural venous sinuses: Unremarkable given phase of enhancement. Other: Arterial phase appearance of the brain parenchyma is unremarkable. Neck CT Angiogram: Internal carotid arteries: Atherosclerotic irregularity and calcification can be seen involving the right carotid bifurcation region. There is up to 70% stenosis seen involving the right proximal internal carotid artery. No significant stenosis. No dissection or occlusion. Note is made of medialization and tortuosity the of the internal carotid arteries. Common carotid arteries: Unremarkable. No significant stenosis. No dissection or occlusion. External carotid arteries: Unremarkable. No occlusion. Vertebral arteries: Unremarkable. No significant stenosis. No dissection or occlusion. Aortic Arch and Mediastinum: Partially visualized aortic arch unremarkable without evidence of aneurysm. Origins of the great vessels unremarkable. Other: Moderate cervical spine degenerative change is seen. Mild emphysematous changes can be seen at the lung apices. IMPRESSION: No significant intracranial arterial abnormality is seen. Focal calcification and irregularity can be seen involving the right carotid bifurcation region with up to 70% narrowing involving the right proximal internal carotid artery. Additional findings: Moderate cervical spine degenerative change Any quantitative measurements of stenosis were performed using NASCET criteria. Chest x-ray: Radiologist's Impression: [address] [place] [id number] XRay Report Signed Patient: Dana Becerra MR#: [id number] : 1955 Acct:[id number] Age/Sex: 70 / F Date of Service: 09/07/25 Loc: ED Accession Number: [id number] Procedure: XR chest 1V Ordering Provider: Maurilio Ortega D.O. PROCEDURE: XR CHEST 1V INDICATIONS: Possible stroke TECHNIQUE: One view of the chest was acquired. COMPARISON: [facility], CT, CT ANGIO HEAD AND NECK, 09/07/2025, 8:22. [facility], CT, CT STROKE, 09/07/2025, 8:22. FINDINGS: Surgical changes and devices: Left axillary/left breast clips are seen. Lungs and pleura: An incomplete inspiratory result is noted, causing a crowded appearance to the lung markings. No focal infiltrates are seen. No pneumothorax or significant pleural effusions are seen. Mediastinum: Mediastinal contours appear normal. Heart size is normal. Bones and chest wall: No suspicious bony lesions. Age-appropriate bony degenerative changes are seen. Overlying soft tissues appear unremarkable. IMPRESSION: Low lung volumes, without an acute abnormality seen by plain film. Postoperative and degenerative changes are seen. Dictated by: Davie Madden M.D. on 09/07/2025 at 8:26 Approved by: Davie Madden M.D. on 09/07/2025 at 8:26 Extremity x-ray #1: Radiologist's Impression: [address] [address] Ultrasound Report Signed Patient: Dana Becerra MR#: [id number] : 1955 Acct:[id number] Age/Sex: 70 / F Date of Service: 09/07/25 Loc: ED Accession Number: [id number] Procedure: US carotid doppler BI Ordering Provider: Maurilio Ortega D.O. PROCEDURE: US CAROTID DOPPLER BI INDICATIONS: stroke TECHNIQUE: Color and pulse Doppler interrogation was performed of both carotid systems, with image documentation and velocity measurements. COMPARISON: None. FINDINGS: Stenosis calculations are based on SRU (Society of Radiologists in Ultrasound) criteria. Right side: Common carotid artery peak systolic velocity: 82 cm/sec. Internal carotid artery peak systolic velocity: 118 cm/sec. Internal carotid artery end diastolic velocity: 52 cm/sec. External carotid artery peak systolic velocity: 106 cm/sec. ICA/CCA peak systolic ratio: 1.5 . Hahn scale imaging description: Mild plaque at the carotid bulb Percent internal carotid artery stenosis: Less than 50% . Vertebral artery: Flow direction is antegrade. Left side: Common carotid artery peak systolic velocity: 55 cm/sec. Internal carotid artery peak systolic velocity: 92 cm/sec. Internal carotid artery end diastolic velocity: 37 cm/sec. External carotid artery peak systolic velocity: 80 cm/sec. ICA/CCA peak systolic ratio: 1.7 . Hahn scale imaging description: Mild plaque at the carotid bulb Percent internal carotid artery stenosis: Less than 50% . Vertebral artery: Flow direction is antegrade. IMPRESSION: 1. In the right carotid artery, there is less than 50% stenosis based on peak systolic velocity criteria. 2. In the left carotid artery, there is less than 50% stenosis based on peak systolic velocity criteria. 3. Antegrade vertebral arteries. Dictated by: Cezar Evans M.D. on 09/07/2025 at 10:09 Approved by: Cezar Evans M.D. on 09/07/2025 at 10:11 ECG Data Interpretation: NSR HR 95 SC 162 QRS [address]-t wave change No previous EKG to compare MDM Narrative Medical decision making narrative: All lab work, vital signs, nurse triage note, medication list, previous ER visits, and all imaging studies reviewed. CT head showed no acute process. CT head and neck showed focal calcification and an irregularity seen right carotid bifurcation region with up to 70% narrowing involving the right proximal internal carotid artery. EKG normal sinus rhythm. WBC 11.9 hemoglobin 14.2 platelets 348 INR 0.9 sodium 137 potassium 3.5 chloride 101 CO2 26 BUN 15 creatinine 0.57 glucose 137. Troponin 0.082. Spoke with [facility] stroke MD Dr. Chuy Gomez no TNK at this time start dual platelet therapy with aspirin loading dose 325 and Plavix 300 and for the next 21 days aspirin 81 mg and Plavix 75 mg and to order carotid ultrasound per Dr. Gomez and brain MRI. NIH stroke scale 4. Case d/w who has graciously accepted pt for inpatient admission Discharge Plan Departure Patient Disposition: Admitted As Inpatient Clinical Impression: Cerebrovascular accident Admit Date/Time: 09/07/25 11:21 Admit Provider: Enrique Arenas V
[2025-09-07 08:47] LABS: INR 0.9 (0.9-1.3); Prothrombin Time 10.5 SECONDS (9.4-12.5)
[2025-09-07 08:50] LABS: PTT Partial Thromboplastin Tim 29 SECONDS (25.1-36.5)
[2025-09-07 08:52] LABS: Add Manual Diff / Slide Review NO; Alanine Aminotransferase 39 IU/L (<35); Albumin 4.8 g/dL (3.5-5.0); Albumin Globulin Ratio 1.5 (1.0-2.8); Alkaline Phosphatase 95 U/L (38-126); Blood Urea Nitrogen 15 mg/dL (7-17); Calcium 10.2 mg/dL (8.4-10.2); Carbon Dioxide 26 mmol/L (22-32); Chloride 101 mmol/L (98-107); Creatine Kinase 57 U/L (30-135); Estimated Glomerular Filt Rate > 60 mL/min (>60); Globulin 3.2 g/dL (1.7-4.1); Glucose 137 mg/dL (70-99); HEMOLYSIS < 15 (0-50); Hematocrit 41.6 % (36-46); Hemoglobin 14.2 g/dL (12.0-16.0); Lymphocytes Absolute Auto 1300 /uL (1100-4500); Mean Corpuscular HGB Conc 34.1 % (30-36); Mean Corpuscular Hemoglobin 29.5 PG (26-34); Mean Corpuscular Volume 86.5 fL (80-100); Platelet Count 348 X10^3/uL (150-400); Potassium 3.5 mmol/L (3.4-5.1); Sodium 137 mmol/L (137-145); Total Protein 8.0 g/dL (6.3-8.2)
[2025-09-07] MEDS: ONDANSETRON 4 MG/2 ML INJ IV (08:53)
--- NOTE | 2025-09-07 08:56 | DI.US.S_ITS ---
PROCEDURE: US CAROTID DOPPLER BI INDICATIONS: stroke TECHNIQUE: Color and pulse Doppler interrogation was performed of both carotid systems, with image documentation and velocity measurements. COMPARISON: None. FINDINGS: Stenosis calculations are based on SRU (Society of Radiologists in Ultrasound) criteria. Right side: Common carotid artery peak systolic velocity: 82 cm/sec. Internal carotid artery peak systolic velocity: 118 cm/sec. Internal carotid artery end diastolic velocity: 52 cm/sec. External carotid artery peak systolic velocity: 106 cm/sec. ICA/CCA peak systolic ratio: 1.5 . Hahn scale imaging description: Mild plaque at the carotid bulb Percent internal carotid artery stenosis: Less than 50% . Vertebral artery: Flow direction is antegrade. Left side: Common carotid artery peak systolic velocity: 55 cm/sec. Internal carotid artery peak systolic velocity: 92 cm/sec. Internal carotid artery end diastolic velocity: 37 cm/sec. External carotid artery peak systolic velocity: 80 cm/sec. ICA/CCA peak systolic ratio: 1.7 . Hahn scale imaging description: Mild plaque at the carotid bulb Percent internal carotid artery stenosis: Less than 50% . Vertebral artery: Flow direction is antegrade. IMPRESSION: 1. In the right carotid artery, there is less than 50% stenosis based on peak systolic velocity criteria. 2. In the left carotid artery, there is less than 50% stenosis based on peak systolic velocity criteria. 3. Antegrade vertebral arteries. Dictated by: Cezar Evans M.D. on 09/07/2025 at 10:09 Approved by: Cezar Evans M.D. on 09/07/2025 at 10:11
--- NOTE | 2025-09-07 08:57 | DI.MRI.S_ITS ---
PROCEDURE: MR HEAD/BRAIN WO CON INDICATIONS: stroke TECHNIQUE: Noncontrast axial T1 spin echo, axial T2 fast spin echo, sagittal and axial FLAIR, coronal T2 fast spin echo, axial gradient echo, axial diffusion and ADC through the brain. COMPARISON: None. FINDINGS: Image quality: Excellent. CSF Spaces: Basal cisterns are patent. No extra-axial fluid collections. Ventricles are normal in size and shape. Brain: No intracranial masses or hemorrhage. Increased T2 signal within the left medial occipital temporal lobe gyri, corresponding to the region of infarct. Acute infarct of the left medial occipital temporal lobe extending to the left lingual gyrus (series 11, image 12). No hemorrhagic conversion. Scattered small foci of microvascular ischemic change in the supratentorial white matter. No chronic ischemic insults. Normal intravascular flow voids are present. Skull and face: Calvarium has normal marrow signal. Orbits appear normal. Sinuses: T2 hyperintense thickening of the left maxillary sinus. The mastoid air cells are patent. IMPRESSION: Acute infarct of the left medial occipitotemporal lobe, corresponding to a left [employer] territory infarct.. No hemorrhagic conversion. Dictated by: Cezar Evans M.D. on 09/07/2025 at 13:42 Approved by: Cezar Evans M.D. on 09/07/2025 at 13:46
[2025-09-07 09:03] LABS: Troponin I 0.082 ng/mL (0.01-0.034)
[2025-09-07] MEDS: CLOPIDOGREL 75 MG TABLET 300 MG PO (09:55)
[2025-09-07] MEDS: ASPIRIN EC 325 MG TABLET PO (09:55)
[2025-09-07 10:49] LABS: Appearance Urine UA CLEAR; Bilirubin Urine UA NEGATIVE (NEGATIVE); Color Urine UA YELLOW; Glucose Urine UA NEGATIVE (Negative); Ketones Urine UA 1+ (NEGATIVE); Leukocyte Esterase Urine UA NEGATIVE (NEGATIVE); Nitrite Urine UA NEGATIVE (Negative); Occult Blood Urine UA NEGATIVE (Negative); Protein Urine UA NEGATIVE (Negative); Specific Gravity Urine UA 1.010 (1.000-1.035); Urobilinogen Urine UA 0.2 E.U./dL (0.2)
[2025-09-07 10:52] LABS: Ur Specific Gravity Normal (Normal)
[2025-09-07 10:53] LABS: UR Morphine/Opiate cutoff 300 Negative (Negative); Urine MDMA Negative (Negative); Urine Methamphetamines Negative (Negative); Urine Tetrahydrocannabinol Negative (Negative); Urine Tricyclic Antidepressant Negative (Negative)
[2025-09-07 11:03] LABS: Culture Indicated Urine Cult Not Indicated; pH Urine UA 7.5 (4.5-8.0)
--- NOTE | 2025-09-07 12:09 | PM.HP.IH.1 ---
History of Present Illness History of Present Illness Date Patient Seen: 09/07/25 Time Patient Seen: 13:03 Chief complaint: CODE Stroke Narrative: 70-year-old woman with a history of hypertension left breast cancer status post lumpectomy treated without chemotherapy, and remote tobacco use was feeding her cat this morning when she noticed sudden onset right arm weakness, concentration and word-finding difficulties at approximately 5:00 a.m. she called paramedics and arrived at the hospital at 8:20 a.m., undergoing triage and head CT, with an NIHSS score of 4 on arrival and remaining for through emergency department course and upon arrival to the floor after her MRI was completed on exam by this provider at 1:00 p.m.. She was given aspirin 325 mg and clopidogrel 300 mg in the emergency department and transferred to the medical floor after MRI imaging was complete. She is seen at bedside with her daughter cousin and other family members, and is able to provide history by herself with some assistance from family. [facility] Medical History Hypertension Surgical History Hx of colonoscopy Social History household members: none Smoking Status: Former smoker alcohol intake: current Meds Home Medications and Allergies Home Medications ?Medication ?Instructions ?Recorded ?Confirmed ?Type lisinopril 20 1 tab PO DAILY 07/13/20 09/07/25 History mg-hydrochlorothiazide 25 mg tablet Allergies Allergy/AdvReac Type Severity Reaction Status Date / Time No Known Drug Allergies Allergy Verified 07/17/20 07:01 Review of Systems Review of Systems ROS: Yes All systems reviewed with the patient and are negative except as otherwise documented Exam Vital Signs (past 8 hours): - 09/07/25 08:20 09/07/25 08:32 09/07/25 08:33 Temperature 98.3 F Pulse Rate 98 H 97 H 99 H Respiratory Rate 26 H 20 22 Blood Pressure 200/92 H Pulse Oximetry 95 96 97 Oxygen Delivery Method Room Air Oxygen Flow Rate 09/07/25 08:33 09/07/25 09:00 09/07/25 09:00 Temperature Pulse Rate 90 Respiratory Rate 15 Blood Pressure 200/92 H 164/77 H Pulse Oximetry 97 Oxygen Delivery Method Nasal Cannula Oxygen Flow Rate 3 Oxygen Delivery Method Nasal Cannula Oxygen Flow Rate 3 Narrative Exam Narrative: GENERAL: This is a well-nourished, well-developed patient, in no apparent distress. HEAD: Atraumatic. Normocephalic. No temporal or scalp tenderness. EYES: Pupils equal round and reactive. Extraocular motions intact. Right hemianopsia. No scleral icterus. No injection or drainage. ENT: Mucous membranes pink and moist. NECK: Trachea midline. No JVD, bruits or lymphadenopathy. Supple, nontender, no meningeal signs. CARDIOVASCULAR: Regular rate and rhythm without murmurs, gallops, or rubs. RESPIRATORY: Clear to auscultation. GASTROINTESTINAL: Abdomen soft, non-tender, nondistended. EXTREMITIES: No clubbing, cyanosis, or edema. BACK: Nontender without deformity or crepitance. No flank tenderness. NEUROLOGIC: Alert, oriented, speech fluent, right sided hemianopsia on confrontational visual field testing, full upper and lower motor strength on the left with right arm and leg pronator drift, no focal deficits evident. NIHSS 4. DERMATOLOGIC: No rashes or skin lesions. Objective ECG Impression: Normal sinus rhythm at 95 beats per minute, anterior Q-waves consistent with septal infarct Imaging *: Radiologist's impression: 1. Head CT 09/07/2025: No acute intracranial pathology. No acute intracranial hemorrhage is seen. Additional findings: Focal left maxillary sinus disease 2. Head/neck CT 09/07/2025: No significant intracranial arterial abnormality is seen. Focal calcification and irregularity can be seen involving the right carotid bifurcation region with up to 70% narrowing involving the right proximal internal carotid artery. 3. Chest x-ray 09/07/2025: Low lung volumes, without an acute abnormality seen by plain film. Postoperative and degenerative changes are seen. 4. Carotid Doppler 09/07/2025: 1. In the right carotid artery, there is less than 50% stenosis based on peak systolic velocity criteria. 2. In the left carotid artery, there is less than 50% stenosis based on peak systolic velocity criteria. 3. Antegrade vertebral arteries. 5. Brain MRI 09/07/2025: Acute infarct of the left medial occipitotemporal lobe, corresponding to a left CHASER HELPER territory infarct.. No hemorrhagic conversion. Labs 09/07/25 08:20 09/07/25 08:20 Labs: Laboratory Results - last 24 hr 09/07/25 09/07/25 09/07/25 08:20 08:28 10:30 WBC 11.9 H RBC 4.81 Hgb 14.2 Hct 41.6 MCV 86.5 MCH 29.5 MCHC 34.1 RDW 12.4 Plt Count 348 Neut % (Auto) 85.5 H Lymph % (Auto) 11.2 L [place] % (Auto) 2.7 L Eos % (Auto) 0.2 L Baso % (Auto) 0.4 Neut # (Auto) 23273 H Lymph # (Auto) 1300 [place] # (Auto) 300 Eos # (Auto) 0 Baso # (Auto) 0 PT 10.5 INR 0.9 APTT 29 Sodium 137 Potassium 3.5 Chloride 101 Carbon Dioxide 26 BUN 15 Creatinine 0.57 Estimated GFR > 60 BUN/Creatinine Ratio 26.3 H Glucose 137 H POC Whole Bld Glucose 138 H Calcium 10.2 Total Bilirubin 0.7 AST 35 ALT 39 H Alkaline Phosphatase 95 Total Creatine Kinase 57 Troponin I 0.082 H Total Protein 8.0 Albumin 4.8 Globulin 3.2 Albumin/Globulin Ratio 1.5 Urine Color Yellow Urine Appearance Clear Urine pH 7.5 Ur Specific [place] 1.010 Urine Protein Negative Urine Glucose (UA) Negative Urine Ketones 1+ H Urine Occult Blood Negative Urine Nitrate Negative Urine Bilirubin Negative Urine Urobilinogen 0.2 Ur Leukocyte Esterase Negative Urine RBC None seen Urine WBC None seen Ur Squamous Epith Cells None seen Urine Bacteria None seen Ur Culture Indicated? Cult not indicated Vol Urine Centrifuged 10ml (spun) U Opiates 300ng/mL cut Negative Ur Oxycodone Screen Negative Urine Methadone Screen Negative Ur Barbiturates Screen Negative U Tricyclic Antidepress Negative Ur Phencyclidine Scrn Negative Ur Amphetamines Screen Negative U Methamphetamines Scrn Negative Ur MDMA Scrn (Ecstasy) Negative U Benzodiazepines Scrn Negative Urine Cocaine Screen Negative U Marijuana (THC) Screen Negative Urine Specific [place] Ur Creatinine 09/07/25 10:30 WBC RBC Hgb Hct MCV MCH MCHC RDW Plt Count Neut % (Auto) Lymph % (Auto) [place] % (Auto) Eos % (Auto) Baso % (Auto) Neut # (Auto) Lymph # (Auto) [place] # (Auto) Eos # (Auto) Baso # (Auto) PT INR APTT Sodium Potassium Chloride Carbon Dioxide BUN Creatinine Estimated GFR BUN/Creatinine Ratio Glucose POC Whole Bld Glucose Calcium Total Bilirubin AST ALT Alkaline Phosphatase Total Creatine Kinase Troponin I Total Protein Albumin Globulin Albumin/Globulin Ratio Urine Color Urine Appearance Urine pH Normal Ur Specific [place] Urine Protein Urine Glucose (UA) Urine Ketones Urine Occult Blood Urine Nitrate Urine Bilirubin Urine Urobilinogen Ur Leukocyte Esterase Urine RBC Urine WBC Ur Squamous Epith Cells Urine Bacteria Ur Culture Indicated? Vol Urine Centrifuged U Opiates 300ng/mL cut Ur Oxycodone Screen Urine Methadone Screen Ur Barbiturates Screen U Tricyclic Antidepress Ur Phencyclidine Scrn Ur Amphetamines Screen U Methamphetamines Scrn Ur MDMA Scrn (Ecstasy) U Benzodiazepines Scrn Urine Cocaine Screen U Marijuana (THC) Screen Urine Specific [place] Normal Ur Creatinine Normal Assessment & Plan Assessment & Plan narrative: 1. Acute cerebrovascular accident left medial occipitotemporal lobe, corresponding to a left CHASER HELPER territory infarct, with right-sided weakness and right hemianopsia. She has not a candidate for thrombolytic therapy issues outside the 3 hour window and has changes of acute stroke on MRI. Rule out occult atrial fibrillation. 2. Hypertension. 3. Nonobstructive carotid artery atherosclerotic disease. 4. Hyperglycemia. 5. Borderline elevated troponin. Plan: -admit as inpatient -telemetry, rule out atrial fibrillation -aspirin 81 mg daily -clopidogrel 75 mg daily for 21 days -atorvastatin 80 mg daily -check lipids and hemoglobin A1c -echocardiogram -monitor serial cardiac enzymes -PT/OT/speech therapy Scores NIHSS Level of Conciousness: Alert, keenly responsive Ask month/age: Answers both questions correctly. Open/close eyes, close hand: Performs both tasks correctly Best gaze horizontal: Normal Visual lopez: Complete hemianopia Facial palsy: Normal symetrical movement Left arm drift: No drift for full 10 sec Right arm drift: Drifts down, not to bed Left leg drift: No drift for full 5 sec Right leg drift: Drifts down, not to bed Limb ataxia: Absent Sensory on face/arms/legs: Normal, no sensory loss Best language: No aphasia, normal Dysarthria: Normal Extinction or inattention: No abnormality Total NIH Stroke scale score: 4 Quality MIPS - Admit I confirm the patient?s Advance Care Plan is present, Code status is documented, Surrogate decision maker is in patient?s record [If Yes, STOP here]: Yes MIPS - Meds 'Current medications' to include all prescriptions, dirm-scm-benckor products, herbals, cannabis/cannabidiol products, and vitamin/mineral/dietary (nutritional) supplements. I have utilized all available resources to obtain, update, or review the patient?s current medications. 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
--- NOTE | 2025-09-07 12:53 | DI.ECHO.S_ITS ---
[facility] : : [address] : : [place] : : [id number] : : Phone: [phone] Echocardiogram Report + + :Name: KEEGAN VALDEZ Study Date: 09/08/2025 Height: 62 in : :[facility] ReadingLocation: Weight: 154 lb : : Gender: Female BSA: 1.7 m2 : :: 1955 Age: 70 yrs BP: 126/77 mmHg: :Reason For Study: CVA : :Ordering Physician: ZHANG, : :NETTA Performed By: Suleman Hurtado : :Referring: NETTA HOLCOMB : + + Interpretation Summary The ejection fraction is estimated to be 45-50%. Mid to distal anterior wall is hypokinetic. The true apex appears to be hypo to akinetic. The apex is without obvious thrombus. The right ventricle is normal in size and function. Pulmonary artery pressures cannot be estimated because of the lack of a measurable TR jet velocity but the IVC suggests a CVP of around 3 mmHg. Injection of contrast with valsalva documented an interatrial shunt. There is mild aortic regurgitation. Procedure: A two-dimensional transthoracic echocardiogram with color flow and Doppler was performed. The study quality was technically adequate. A saline contrast injection was performed to assess for cardiac shunting. A contrast injection of Definity was performed to improve assessment of LV function. There is no prior echocardiogram noted for this patient. The patient was in normal sinus rhythm during the exam. Left Ventricle: The left ventricle is normal in size. Left ventricular wall thickness is at the upper limits of normal. There is no thrombus. The ejection fraction is estimated to be 45-50%. Mid to distal anterior wall is hypokinetic. The true apex appears to be hypo to akinetic. Normal diastolic function. Right Ventricle: The right ventricle is normal in size and function. Atria: The left atrial size is normal. Right atrial size is normal. Bubble study was captured on image frame(s) # [id number]. Injection of contrast with valsalva documented an interatrial shunt. Bubble study performed per protocol. Positive bubble study documented with significant bubbles noted at release of Valsalva maneuver and cough. Mitral Valve: The mitral valve leaflets appear to open well. There is no mitral valve stenosis. There is trace mitral regurgitation. Aortic Valve: The aortic valve is trileaflet. The aortic valve opens well. There is no aortic valve stenosis. There is mild aortic regurgitation. Tricuspid Valve: The tricuspid valve leaflets are thin and pliable. There is trace tricuspid regurgitation. Pulmonary artery pressures cannot be estimated because of the lack of a measurable TR jet velocity but the IVC suggests a CVP of around 3 mmHg. Pulmonic Valve: The pulmonic valve is not well seen, but is grossly normal. There is trace pulmonic regurgitation. Great Vessels: The aortic root is normal size. The ascending aorta is normal in size. The aortic arch could not be visualized. The pulmonary artery is normal size. The IVC is of normal diameter and collapses greater than 50% with a sniff. This suggests a low right atrial pressure of 3 mm Hg. Pericardium/ Pleura Small pocket of pericardial effusion noted off the right ventricular free wall in apical four view images 41-42. MMode/2D Measurements & Calculations LVIDd: 4.5 cm LVOT diam: 2.0 cm LVIDs: 3.0 cm Ao root diam: 3.0 cm FS: 33.6 % asc Aorta Diam: 3.1 cm IVSd: 0.98 cm LVPWd: 0.96 cm LV colbert. diameter/BSA (cm/m^2): 2.6 LV sys. diameter/BSA (cm/m^2): 1.7 LA A2 area: 16.9 cm2 RA area: 10.4 cm2 LA A4 area: 12.7 cm2 IVC diam: 1.7 cm LA length (vol): 4.8 cm LA vol: 37.7 ml LA vol index: 22.1 ml/m2 RVD1 (basal): 3.0 cm RVD2 (mid): 2.2 cm TAPSE: 2.0 cm Doppler Measurements & Calculations Ao V2 max: 147.1 cm/sec LVOT Max Wilver: 108.6 cm/sec Ao V2 mean: 102.8 cm/sec LV V1 max P.7 mmHg Ao max P.7 mmHg LV V1 VTI: 17.0 cm Ao mean P.6 mmHg FEDERICO(I,D): 2.3 cm2 Ao V2 VTI: 23.2 cm FEDERICO(V,D): 2.3 cm2 sev ratio: 0.74 FEDERICO indexed to BSA (cm^2/m^2): 1.3 AI P1/2t: 587.4 msec AI dec slope: 198.9 cm/sec2 MV E max wilver: 62.1 cm/sec PA V2 max: 127.0 cm/sec MV A max wilver: 84.3 cm/sec PA V2 mean: 91.9 cm/sec MV E/A: 0.74 PA mean P.7 mmHg Med Peak E' Wilver: 4.3 cm/sec PA pr(Accel): 34.0 mmHg E/E' med: 14.6 Lat Peak E' Wilver: 7.0 cm/sec E/E' lat: 8.9 E/e' average: 11.7 MV dec time: 0.15 sec SV(LVOT): 52.9 ml Qp/Qs (V,Ao): 1.0/5.6 Qp/Qs (V,LVOT): 1.0/1.9 Reading Physician:09:22 AM
--- NOTE | 2025-09-07 13:34 | PC.NURSE ---
Pt sitting up in bed-able to transfer to bed and bsc with 1 person assist secondary to right sided weakness and lack of coordination. Pt oriented to room, call light, bed controls, and tv controls. Family at the bedside. Pt denies pain, nausea, or shortness of breath. Admission completed. Bed alarm on for safety. Pt agrees to call for assistance as needed.
[2025-09-07 15:27] LABS: Troponin I 0.473 ng/mL (0.01-0.034)
--- NOTE | 2025-09-07 15:46 | PT-IP ANOTE ---
PT evaluation contraindicated secondary to elevated and up trending troponin with ECG noted septal infarct. Will continue to follow tomorrow for evaluation.
[2025-09-07 16:55] LABS: Hemoglobin A1C% w Est Avg Glu 5.6 % (4.0-6.0)
[2025-09-07 17:08] LABS: Cholesterol 260 mg/dL (140-199); HDL Cholesterol 65 mg/dL (40-60); Triglycerides 187 mg/dL (35-150)
[2025-09-07] MEDS: ATORVASTATIN 20 MG TABLET 80 MG PO (21:04)
[2025-09-08 03:00] VITALS: BP 126/77; PULSE 87; RESP 18; TEMP 36.9; O2SAT 97
[2025-09-08 04:59] LABS: Add Manual Diff / Slide Review NO; Hematocrit 38.4 % (36-46); Hemoglobin 13.2 g/dL (12.0-16.0); Lymphocytes Absolute Auto 2900 /uL (1100-4500); Mean Corpuscular HGB Conc 34.5 % (30-36); Mean Corpuscular Hemoglobin 29.7 PG (26-34); Mean Corpuscular Volume 86.1 fL (80-100); Platelet Count 333 X10^3/uL (150-400)
[2025-09-08 05:10] LABS: Alanine Aminotransferase 33 IU/L (<35); Albumin 4.3 g/dL (3.5-5.0); Albumin Globulin Ratio 1.4 (1.0-2.8); Alkaline Phosphatase 74 U/L (38-126); Blood Urea Nitrogen 18 mg/dL (7-17); Calcium 10.3 mg/dL (8.4-10.2); Carbon Dioxide 30 mmol/L (22-32); Chloride 99 mmol/L (98-107); Estimated Glomerular Filt Rate > 60 mL/min (>60); Globulin 3.0 g/dL (1.7-4.1); Glucose 100 mg/dL (70-99); HEMOLYSIS < 15 (0-50); Potassium 4.1 mmol/L (3.4-5.1); Sodium 136 mmol/L (137-145); Total Protein 7.3 g/dL (6.3-8.2)
--- NOTE | 2025-09-08 05:32 | PM.PN.1 ---
Subjective Subjective Interval history: opened in error Exam Vital Signs (past 8 hours): - 09/07/25 23:00 09/08/25 03:00 Temperature 99.1 F 98.4 F Pulse Rate 95 H 87 Respiratory Rate 18 18 Blood Pressure 118/68 126/77 Pulse Oximetry 95 97 Oxygen Flow Rate 0 0 Oxygen Delivery Method Room Air Oxygen Flow Rate 0 Objective Labs 09/08/25 04:45 09/08/25 04:45 Labs: Laboratory Results - last 24 hr 09/07/25 09/07/25 09/07/25 08:20 08:28 10:30 WBC 11.9 H RBC 4.81 Hgb 14.2 Hct 41.6 MCV 86.5 MCH 29.5 MCHC 34.1 RDW 12.4 Plt Count 348 Neut % (Auto) 85.5 H Lymph % (Auto) 11.2 L [place] % (Auto) 2.7 L Eos % (Auto) 0.2 L Baso % (Auto) 0.4 Neut # (Auto) 66984 H Lymph # (Auto) 1300 [place] # (Auto) 300 Eos # (Auto) 0 Baso # (Auto) 0 PT 10.5 INR 0.9 APTT 29 Sodium 137 Potassium 3.5 Chloride 101 Carbon Dioxide 26 BUN 15 Creatinine 0.57 Estimated GFR > 60 BUN/Creatinine Ratio 26.3 H Glucose 137 H POC Whole Bld Glucose 138 H Hemoglobin A1c 5.6 Calcium 10.2 Total Bilirubin 0.7 AST 35 ALT 39 H Alkaline Phosphatase 95 Total Creatine Kinase 57 Troponin I 0.082 H Total Protein 8.0 Albumin 4.8 Globulin 3.2 Albumin/Globulin Ratio 1.5 Triglycerides 187 H Cholesterol 260 H LDL Cholesterol, Calc 158 H HDL Cholesterol 65 H Urine Color Yellow Urine Appearance Clear Urine pH 7.5 Ur Specific [place] 1.010 Urine Protein Negative Urine Glucose (UA) Negative Urine Ketones 1+ H Urine Occult Blood Negative Urine Nitrate Negative Urine Bilirubin Negative Urine Urobilinogen 0.2 Ur Leukocyte Esterase Negative Urine RBC None seen Urine WBC None seen Ur Squamous Epith Cells None seen Urine Bacteria None seen Ur Culture Indicated? Cult not indicated Vol Urine Centrifuged 10ml (spun) U Opiates 300ng/mL cut Negative Ur Oxycodone Screen Negative Urine Methadone Screen Negative Ur Barbiturates Screen Negative U Tricyclic Antidepress Negative Ur Phencyclidine Scrn Negative Ur Amphetamines Screen Negative U Methamphetamines Scrn Negative Ur MDMA Scrn (Ecstasy) Negative U Benzodiazepines Scrn Negative Urine Cocaine Screen Negative U Marijuana (THC) Screen Negative Urine Specific [place] Ur Creatinine 09/07/25 09/07/25 09/08/25 10:30 14:46 04:45 WBC 11.8 H RBC 4.46 Hgb 13.2 Hct 38.4 MCV 86.1 MCH 29.7 MCHC 34.5 RDW 12.4 Plt Count 333 Neut % (Auto) 67.6 Lymph % (Auto) 24.1 L [place] % (Auto) 6.8 Eos % (Auto) 0.7 L Baso % (Auto) 0.8 Neut # (Auto) 8000 H Lymph # (Auto) 2900 [place] # (Auto) 800 Eos # (Auto) 100 Baso # (Auto) 100 PT INR APTT Sodium 136 L Potassium 4.1 Chloride 99 Carbon Dioxide 30 BUN 18 H Creatinine 0.65 Estimated GFR > 60 BUN/Creatinine Ratio 27.7 H Glucose 100 H POC Whole Bld Glucose Hemoglobin A1c Calcium 10.3 H Total Bilirubin 0.8 AST 36 ALT 33 Alkaline Phosphatase 74 Total Creatine Kinase Troponin I 0.473 H* Total Protein 7.3 Albumin 4.3 Globulin 3.0 Albumin/Globulin Ratio 1.4 Triglycerides Cholesterol LDL Cholesterol, Calc HDL Cholesterol Urine Color Urine Appearance Urine pH Normal Ur Specific [place] Urine Protein Urine Glucose (UA) Urine Ketones Urine Occult Blood Urine Nitrate Urine Bilirubin Urine Urobilinogen Ur Leukocyte Esterase Urine RBC Urine WBC Ur Squamous Epith Cells Urine Bacteria Ur Culture Indicated? Vol Urine Centrifuged U Opiates 300ng/mL cut Ur Oxycodone Screen Urine Methadone Screen Ur Barbiturates Screen U Tricyclic Antidepress Ur Phencyclidine Scrn Ur Amphetamines Screen U Methamphetamines Scrn Ur MDMA Scrn (Ecstasy) U Benzodiazepines Scrn Urine Cocaine Screen U Marijuana (THC) Screen Urine Specific [place] Normal Ur Creatinine Normal PFSH Medical History Hypertension Surgical History Hx of colonoscopy Social History household members: none Smoking Status: Former smoker alcohol intake: current Assessment & Plan Time-Based Coding :: [TOTAL MINUTES] spent with patient and on the chart (including review of chart, obtaining history, exam, reviewing outside data, placing orders, documenting exam and treatment plan, and counseling patient) on [DATE].
[2025-09-08 05:41] LABS: Troponin I 0.271 ng/mL (0.01-0.034)
[2025-09-08 08:57] VITALS: BP 145/82
[2025-09-08 09:00] VITALS: BP 145/82; PULSE 91; RESP 16; TEMP 37.2; O2SAT 96
[2025-09-08] MEDS: ENOXAPARIN 40 MG/0.4 ML SYRINGE SUBCUT (09:01)
[2025-09-08] MEDS: CLOPIDOGREL 75 MG TABLET PO (09:38)
--- NOTE | 2025-09-08 10:05 | PT.IIE ---
Current Diagnoses Cerebral infarction, unspecified (09/07/25) Surgical History (Last Reviewed 09/07/25 @ 12:10 by Enrique Arenas MD) Hx of colonoscopy Medical History (Last Reviewed 09/07/25 @ 12:10 by Enrique Arenas MD) Hypertension Physical Therapy Inpatient Evaluation/Re-Eval M1 PT IP Prior Functional Status Start: 09/08/25 10:50 Freq: Status: Active Protocol: Document 09/08/25 10:50 NW (Rec: 09/08/25 11:08 NW [id number]) Medical Review Prior Functional Status Mobility and Gait I Activities of Daily I Living and IADL's Prior Functional Lives alone and maintains home independently. Level (Other details ) Social History Household Members none Living Arrangements House Number of Floors ( Two Floors Floors) Number of Stairs To 7 steps to enter with B hand rails, is able to stay on Enter/Railing? 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 M2 PT-IP Current Condition Start: 09/08/25 10:50 Freq: Status: Active Protocol: Document 09/08/25 10:50 NW (Rec: 09/08/25 11:08 NW [id number]) Physical Therapy Current Condition Current Condition Evaluation Date 09/08/25 Treatment Diagnosis L TOWER DIRECTOR CVA Onset Date 09/07/25 M3 PT-IP Subjective Start: 09/08/25 10:50 Freq: Status: Active Protocol: Document 09/08/25 10:50 NW (Rec: 09/08/25 11:08 NW [id number]) Subjective Physical Therapy Visit Type Type Initial Evaluation Visit Start Time 09:18 Visit Stop Time 10:05 Number of TRAINING GENERALIST Visits 0 Physical Therapy Visit Comments Patient Comments Pt is found visiting with granddaughter and daughter sitting edge of bed. Patient Goals To go home. M4 PT-IP Mobility and Gait Start: 09/08/25 10:50 Freq: Status: Active Protocol: Document 09/08/25 10:50 NW (Rec: 09/08/25 11:08 NW [id number]) PT-Bed Mobility Assessment Supine to Sit Supine to Sit Independent,Head of Bed Elevated Scooting Scooting to Edge of Independent Bed PT-Transfer Assessment Sit to and From Stand Sit to and from Contact Guard Assistance,1 Person Assistance,Use of Stand Upper Extremities Equipment Transfer Assistive Gait Belt Device Transfers Transfer Destination Bed Transfer Technique Stand Step Pivot Transfer Ability Level of Assist Contact Guard Assistance,1 Person Assistance,Use of Upper Extremities Comments Mobility Comments Pt has adequate power production and balance once achieving stance. With head turns becomes off balance. Gait Assessment Gait Gait Assistance Contact Guard Assist,Minimum Assistance Required: Distance (Feet) 150 Assistive Devices Assistive Device Gait Belt Gait Deviations General Gait Pattern Decreased Stride Length,Step-to Gait,Wide Based Gait Factors Limiting Gait Function Factors Limiting Decreased Sensation,Incoordination,Poor Balance,Poor Gait Function Safety Awareness Comments Gait Comments Pt is able to ambulate in single bout 150' with CGA with straight pathfinding. With head turns pt becomes off balance and requires Angela to regain x 3 throughout session. Pt demonstrates compensatory turning of whole body with increased ambulation distance. No significant signs of exertion. 4 item DGI score: 02/27 deeming pt a falls risk Stair Climbing Assessment Evaluation Level of Assist On Contact Guard Assistance Stairs Devices Stair Climbing Left Railing Assistive Devices Technique/Endurance Stair Climbing Ascend and Descend Direction Stair Climbing Step to Step Technique Number of Steps 3 Climbed Query Text: Stair Climbing Set # 2 Repetitions (reps) Comments Stair Climbing Good safety awareness with adequate power production Comments and eccentric control with step by step descent and ascent. Minimal use of railing for UE assistance. PT-Balance Assessment Sitting Balance and Reactions Static Sitting Normal Balance Ability Dynamic Sitting Good Balance Ability Standing Balance and Reactions Static Standing Fair Balance Ability Dynamic Standing Poor Balance Ability Device Used none Functional Assessments Other Functional Tests vision screen: + for DVA and R upper visual field cut Performed M5 PT-IP Objective Assessments Start: 09/08/25 10:50 Freq: Status: Active Protocol: Document 09/08/25 10:50 NW (Rec: 09/08/25 11:08 NW [id number]) Orientation Orientation/Cognition Level of Alertness Alert Orientation Name,Age,Birthday,Month,Date,Year,Day of Week,Place, Situation Gross Range of Motion Upper Extremity ROM Assessment Within Functional Limits Lower Extremity ROM Assessment Within Functional Limits Strength Lower Extremity Strength Assessment Within Functional Limits Hip R flexion 4/5 Comments Strength Comments No drift noticed or fatigue with sustained hold. Coordination Assessment Gross Coordination Gross Coordination Impaired Assessment Finger to Nose Test Moderate Impairment Heel on Arechiga Test Minimal Impairment Sensation Assessment Sensation Gross Sensation Right UE Impaired Light Touch Impaired Proprioception ( Impaired Position) Sensation Paresthesia Description Other Assessments Other Other Assessments 4 item DGI 6/12 M6 PT-IP Treatment Start: 09/08/25 10:50 Freq: Status: Active Protocol: Document 09/08/25 10:50 NW (Rec: 09/08/25 11:08 NW [id number]) Physical Therapy Treatment Education Education Provided Safety Other Treatments Other Treatment VOR x 1 with arm length distance x 3 reps with notable Performed signs of dizziness M7 PT-IP Assessment and Plan Start: 09/08/25 10:50 Freq: Status: Active Protocol: Document 09/08/25 10:50 NW (Rec: 09/08/25 11:08 NW [id number]) PT Summary Assessment and Plan Potential Rehabilitation Good Potential Status of Condition Evolving at Evaluation Summary Impairments Balance,Coordination,Sensation,Cognition,Transfers,Gait Progress Towards Progressing Toward Goals Goals Assessment Summary Dana is a 70 yr old female admitted for L TOWER DIRECTOR CVA. At baseline pt is independent with all ADLs and functional mobility and lives in a 2 story home with the option to stay on the main level. Today pt is seen with greatest deficits in R upper visual field cut, coordination, and potential vestibular hypofunction on the R side. Pt is able to perform bed mobility independently, transfers at CGA, gait with CGA with Angela to regain with loss of balance x 3 throughout session secondary to head turns with ambulation, and decreased safety awareness with increased impulsivity. Education given to family regarding recommendation for home health with 24/7 assistance as pt is deemed a falls risk with a score of 6/12 on 4 item DGI and HEP of VOR exercises to be performed to assist. Goals Bed Mobility Goal Independent Transfer Goal Independent Gait Goal Independent Gait Distance 250 Other Goals Score > 9/12 on the 4 item DGI. Frequency of Treatment Frequency Of Once a Day Treatment Treatment Plan Physical Therapy Transfer Training,Gait Training,Therapeutic Exercise, Treatment Plan Balance Retraining,Discharge Planning,Neuromuscular Re- ed,Coordination Retraining Precautions Other Precautions falls risk Recommendations To Nursing Amount of Assist 1 Person Assist Needed Discharge Recommendations PT Discharge Home with 24/7 Assist Available,Home Health Recommendations Equipment Needed for FWW secondary to falls risk Home Before Discharge Transportation Needs Private Vehicle at Discharge - PT assist 1
--- NOTE | 2025-09-08 11:05 | OT.IP.EVAL ---
Current Diagnoses Cerebral infarction, unspecified (09/07/25) Past Medical History (Last Reviewed 09/07/25 @ 12:10 by Enrique Arenas MD) Hypertension Surgical History (Last Reviewed 09/07/25 @ 12:10 by Enrique Arenas MD) Hx of colonoscopy Occupational Therapy Inpatient Evaluation/Re-Eval M1 OT IP Prior Functional Status Start: 09/08/25 10:45 Freq: Status: Active Protocol: Document 09/08/25 09:18 MAXIMUS (Rec: 09/08/25 11:05 MAXIMUS Desktop) Medical Review Prior Functional Status Communication Pt able to make needs known Mobility and Gait Pt amb without AD Activities of Daily Pt was I with all BADLs, 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 Social History Household Members none Living Arrangements House Number of Floors ( Two Floors Floors) Number of Stairs To Pt is able to live on main level Enter/Railing? 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-IP Current Condition Start: 09/08/25 10:45 Freq: Status: Active Protocol: Document 09/08/25 09:18 MAXIMUS (Rec: 09/08/25 11:05 MAXIMUS [employer]) Occupational Therapy Current Condition Current Condition Evaluation Date 09/08/25 Treatment Diagnosis CVA Diagnosis Onset Date 09/07/25 M3 OT- IP Subjective and Pain Start: 09/08/25 10:45 Freq: Status: Active Protocol: Document 09/08/25 09:18 MAXIMUS (Rec: 09/08/25 11:05 MAXIMUS Desktop) OT- Subjective Occupational Therapy Visit Type Type Initial Evaluation Visit Start Time 09:18 Visit Stop Time 09:40 Occupational Therapy Visit Comments Patient Comments Pt up with nsg and family on entrance of OT. Pt agreeable to OT eval. Patient/Caregiver To get well Goals OT Pain Assessment Pain Present Pain Present Denied Pain M4 OT- IP ADL's Start: 09/08/25 10:45 Freq: Status: Active Protocol: Document 09/08/25 09:18 MAXIMUS (Rec: 09/08/25 11:05 MAXIMUS Desktop) OT [id number] Comments OT Self-Feeding not a meal time Comments OT ADL-Grooming General Evaluation Grooming Ability Standby Assistance Areas Needing Retrieving/Set-up of Grooming Items Assistance Comments OT Grooming Comments Pt performed sink side on presentation of items. OT ADL-Oral Care General Eval Oral Care Ability Standby Assistance Comments Oral Care Comments Pt performs sink side on set up OT ADL-Dressing General Eval Upper Body Dressing Minimal Assistance Ability Lower Body Dressing Standby Assistance,Contact Guard Assistance Ability Areas Needing Retrieving/Set-up of Clothing Assistance Comments OT Dressing Comments Pt required MIN A to [facility] gown and to manage her heart monitor. Pt donned shirt with S, socks with S , pants with CGA, and shoes with S. OT ADL-Toileting Comments OT Toileting not observed Comments OT ADL-Bathing Comments OT Bathing Comments not observed M5 OT- IP IADL's Start: 09/08/25 10:45 Freq: Status: Active Protocol: Document 09/08/25 09:18 MAXIMUS (Rec: 09/08/25 11:05 [facility] Desktop) OT-Instrumental Activities of Daily Living Deficits IADL Deficits Deficits Identified Home Safety Awareness Awareness of Need Decreased Awareness for Assistance at Home Medication Management Medication Pt has been managing, but may need assist due to visual Management Comments changes Money Management Money Management Pt has been managing, but may need assist due to visual Comments changes Meal Preparation Meal Preparation Pt has been managing, but may need assist due to visual Comments changes 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 Pt has been managing, but may need assist due to visual Comments changes Driving Driving Comments Pt will need assist until medically cleared due to visual changes M6 OT- IP Functional Cognition Start: 09/08/25 10:45 Freq: Status: Active Protocol: Document 09/08/25 09:18 MAXIMUS (Rec: 09/08/25 11:05 [facility] Desktop) Cognitive Factors Limiting Selfcare Function Cognitive Ability Level of Alertness Alert Patient Orientation Name,Month,Year,Place,Situation Attention Span Capable of Focused Attention,Capable of Sustained Ability Attention Ability to Follow Able to Follow One Step Commands,Able to Follow Multi- Commands Step Commands Memory Description No Deficits Noted Safety Awareness Underestimates Need for Assistance Cognitive Comments Cognitive Assessment Pt is somewhat impulsive when moving throughout her Comments room. She c/o dizzy spells on baseline that have worsened with her visual field cut also impacting pts safety in her home environment. OT- Vision and Hearing OT- Hearing Assessment OT- Hearing WFL Assessment OT- Vision Assessment Visual Acuity Glasses For Reading Visual Attentiveness WFL Occular Pursuits WFL Visual Convergence WFL Visual Jenkins Impaired Visual Spacial Right Neglect Vision Assessment Pt with upper R quadrant deficits Comments M7 OT- IP Mobility and Balance Start: 09/08/25 10:45 Freq: Status: Active Protocol: Document 09/08/25 09:18 MAXIMUS (Rec: 09/08/25 11:05 [facility] OT-Transfer Assessment Sit to and From Stand Sit to and from Standby Assistance Stand Transfers Transfer Ability Contact Guard Assistance Technique Transfer Destination Bed Devices Transfer Assistive Gait Belt Devices Comments Mobility Comments Pt with occasional LOB, pt impulsive and quick in her movements. OT- Gait Assessment Gait Gait Assistance Contact Guard Assist Required: Distance (Feet) 15 Assistive Devices Assistive Device Gait Belt OT- Balance Assessment Sitting Balance and Reactions Static Sitting Normal Balance Ability Dynamic Sitting Good Balance Ability Standing Balance and Reactions Static Standing Good Balance Ability Dynamic Standing Fair Balance Ability M8 OT- IP Objective Assessments Start: 09/08/25 10:45 Freq: Status: Active Protocol: Document 09/08/25 09:18 MAXIMUS (Rec: 09/08/25 11:05 [facility] Gross Range of Motion Upper Extremity Range of Motion Assessment Within Functional Limits OT Strength Upper Extremity Strength Assessment Right Impaired Shoulder 4- Elbow bicep 4-, tricep 3+ Hand 4- Hand Site Interpreter Strength Hand Dominance Right OT- Coordination Assessment Upper Extremity Finger to Nose Test Right UE Impaired Finger Tapping Test Right UE Impaired Comments Coordination mild dsymetria Comments OT-Muscle Tone Assessment Muscle Tone WNL Yes OT Sensation Assessment Location Right Leg Sensation Paresthesia,Pins & [place] Description Right Arm Sensation Other Description Right Face Sensation Other Description Comments Summary Comments decreased sensation globally on R UE to light touch, described as less sensitive can still discriminate touch Edema Edema Absent M9 OT- IP Assessment and Plan Start: 09/08/25 10:45 Freq: Status: Active Protocol: Document 09/08/25 09:18 MAXIMUS (Rec: 09/08/25 11:05 [facility]) OT Summary Assessment and Plan Potential Rehabilitation Excellent Potential Analytic Complexity Low at Evaluation Summary OT Impairments Strength,Balance,Coordination,Sensation,Functional Mobility,Grooming,Dressing,Toileting,Bathing,Toilet Transfers,Shower Transfers,Activity Tolerance Progress Towards Progressing Toward Goals Goals Assessment Summary Pt is a 70 yo F who had a sudden onset of R UE weakness and cognitive difficulties. Pt eventually remembered how to use her phone and contacted EMS. She was brought to the ED and had a CT - and MRI that showed a L NIGHT WORKER CVA. Pt presents with R upper quadrant visual field deficit, impulsivity, dysmetria R UE, muscle weakness R UE, decreased BADL, decreased functional mobility and safety awareness. Pt is appropriate for skilled OT services to address these deficits and promote return towards PLOF. Recommend home with 24/7 assist and HH for OT/PT. Goals Self-Feeding Goal Independent Grooming Goal Independent Dressing Goal Independent Toileting Goal Independent Bathing Goal Independent Toilet Transfer Goal Independent Shower Transfer Goal Independent Days to Meet Goals 10 Frequency of Treatment Other frequency 5x/wk Treatment Plan OT Treatment Plan ADL Training,Functional Mobility,Neuromuscular Re- education,Therapeutic Exercises,Vision Retraining, Patient/Family Education,Discharge Planning Other Treatment activity modification due to vision, ADLs Recommendations and Next Treatment Focus Discharge Recommendations OT Discharge Home with 24/7 Assist Available,Home Health Recommendations Home Equipment Needs shower chair, grab bar in shower, grab bar near toilet Transportation Needs Private Vehicle at Discharge
--- NOTE | 2025-09-08 11:35 | ST.IPCSEOM ---
Visit Care Team Role Provider Type Deion Dominique DO Primary Care Provider Non-Staff Specialty: Family Practice Address: [address] [place], [address] Email: Maurilio Ortega DO Emergency Provider Physician Referring Provider Specialty: Emergency Medicine Address: [address] [place] [address], [address] Phone: Fax: Email: [email or web address] Enrique Arenas MD Admit Provider Physician Attending Provider Specialty: Internal Medicine Address: [address] [place] [address], [address] Email: [email or web address] Current Diagnoses Cerebral infarction, unspecified (09/07/25) Past Medical History (Last Reviewed 09/07/25 @ 12:10 by Enrique Arenas MD) Hypertension (Medical) Speech-Language Pathology 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 Arenas Reason for Referral CVA Setting Assessment Location Acute Care Visit Type Note Type Initial evaluation Patient Information Identification Type Name,Wristband History Per H&P:70-year-old woman with a history of hypertension left breast cancer status post lumpectomy treated without chemotherapy, and remote tobacco use was feeding her cat this morning when she noticed sudden onset right arm weakness, concentration and word -finding difficulties at approximately 5:00 a.m. she called paramedics and arrived at the hospital at 8:20 a .m., undergoing triage and head CT, with an NIHSS score of 4 on arrival and remaining for through emergency department course and upon arrival to the floor after her MRI was completed on exam by this provider at 1:00 p.m.. She was given aspirin 325 mg and clopidogrel 300 mg in the emergency department and transferred to the medical floor after MRI imaging was complete. She is seen at bedside with her daughter cousin and other family members, and is able to provide history by herself with some assistance from family. PMHx significant for: HTN Pt referred for ST evaluation d/t Pt dx with CVA in order to assess safe swallow/speech/language/cognition. Subjective Chart reviewed. RN consulted. PT communicated with ST Observations Pt with right sided visual field cut. Pt sitting upright in bed upon ST entering room. Pt awake, alert, oriented and agreeable to evaluation. Pt family present at bedside. Pt reports she has had recent dental surgery causing her to have a slur, however is not associated with her stroke. Pt speech, language and cognition appear WFL. Reported by Patient/Caregiver Current Diet Regular (IDDSI 7) Baseline Feeding Independent in self-feeding Method The IDDSI Framework Protocol: IDDSI.1 Objective Assessment Mental Status Alert,Responsive,Cooperative Oral Integrity WFL Dentition Upper dentures/partials,Lower dentures/partials Lip Function Within normal limits Tongue Function Within normal limits Jaw Function Within normal limits Hard/Soft Palate Within normal limits Function Food and Liquid Trials Position During Upright (90 degrees) Assessment Liquids Trialed Thin (IDDSI 0) Solid Trials Regular (IDDSI 7) Oral Impairment Within functional limits Oral Phase Comments Pt fed self independently. Pt sat upright EOB for PO trials. For regular solid of a sari cracker, Pt took small bite, however her family reported she is not supposed to be eating hard solids d/t her recent oral surgery and is on a pureed/soft diet. Pt insisted on eating the sari cracker and reported it will mush up in my mouth and I won't chew it much. Pt exhibited no overt s/s of aspiration with sari cracker, such as coughing or choking. Pt family report they have been ordering her pureed solids while she has been in the hospital. For thin water via straw, Pt exhibited good oral acceptance and containment, adequate suction, no overt s/s of aspiration such as coughing or choking. Pharyngeal Within functional limits Impairment Pharyngeal Phase See oral phase comments. Comments Fatigue/Endurance Endurance WNL The IDDSI Framework Protocol: IDDSI.1 Findings Swallowing Function Within functional limits Severity of Swallow Within functional limits Impairment Prognosis Good Impact on Safety and No limitations Functioning Recommendations Instrumental No Assessment Swallowing Treatment No Recommended Solids Regular (IDDSI 7) Recommended Liquids Thin (IDDSI 0) Other Pt presents with WFL swallow function. ST recommends Recommendations IDDSI 7 and IDDSI 0 or as tolerated by Pt d/t recent oral surgery. ST recommends another referral be placed if any changes occur. Safety Precautions/ Remain upright (90 degrees) during all oral intake, Swallowing Small bites and sips when eating,Slow rate; swallow Recommendations between bites,Alternate liquids and solids Medication As Tolerated Recommendations Discharge Home Recommendations Education Patient/Caregiver Described results of evaluation,Patient expressed Education understanding of evaluation,Family/caregivers expressed understanding of evaluation,Patient expressed understanding of safety precautions,Family/caregivers expressed understanding of safety precautions
[2025-09-08 12:12] VITALS: BP 140/77; PULSE 93; RESP 18; TEMP 36.5; O2SAT 96
--- NOTE | 2025-09-08 12:13 | PM.DS.1 ---
History of Present Illness History of Present Illness Date Patient Seen: 09/08/25 Time Patient Seen: 12:15 Date of Onset of Symptoms: 09/07/25 Chief complaint: CODE Stroke Narrative: From the admit H&P: 70-year-old woman with a history of hypertension left breast cancer status post lumpectomy treated without chemotherapy, and remote tobacco use was feeding her cat this morning when she noticed sudden onset right arm weakness, concentration and word-finding difficulties at approximately 5:00 a.m. she called paramedics and arrived at the hospital at 8:20 a.m., undergoing triage and head CT, with an NIHSS score of 4 on arrival and remaining for through emergency department course and upon arrival to the floor after her MRI was completed on exam by this provider at 1:00 p.m.. She was given aspirin 325 mg and clopidogrel 300 mg in the emergency department and transferred to the medical floor after MRI imaging was complete. She was seen at bedside with her daughter cousin and other family members, and is able to provide history by herself with some assistance from family. 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 She had initial NIH stroke score of 4. She has done well overnight on the stroke protocol and is noting improvement of symptoms. She still has a right hemianopsia. The right-sided weakness is improving and there is only a minimal difference between the right upper extremity and left upper extremity. The patient was given aspirin and Plavix in the emergency room and these were continued after admission. Carotid ultrasound with less than 50% stenosis bilaterally. The patient was evaluated by PT, OT, and speech therapy. The recommendation was to go home with home health services. She will discharge on dual antiplatelet therapy for 2 weeks then continue on aspirin alone. Of note, the patient had minimal elevation in her troponins which peaked at 0.473. She had no chest pain or other CAD symptoms. EKG demonstrated normal sinus rhythm without acute ST or T-wave changes. There is evidence of prior septal infarct. Echo shows EF 45-50% with mid to distal anterior wall hypokinesis with hypo to akinesis at the true apex. There is no obvious thrombus. The right ventricle is normal size and function. I have discussed these with results with the patient and have recommended that she follow-up with Cardiology for cardiac risk stratification. I have also reached out to Dr. Schwartz she requests that he schedule her for a follow-up appointment. She will discharge on dual antiplatelet therapy and statin. Ultimately, she would benefit from a beta-aric for BP and cardiac management. However in the acute CVA setting, we will allow permissive hypertension. She can begin metoprolol in 1 week. Status at Discharge Cognitive/behavioral status at discharge: at baseline, oriented Functional status at discharge: independent ambulation Overall status at discharge: patient is progressing back to baseline Time Spent with Patient Time spent: Greater than 30 minutes Exam Vital Signs (past 8 hours): - 09/08/25 08:57 09/08/25 09:00 Temperature 99.0 F Pulse Rate 91 H Respiratory Rate 16 Blood Pressure 145/82 H 145/82 H Pulse Oximetry 96 Oxygen Flow Rate 0 Oxygen Delivery Method Room Air Oxygen Flow Rate 0 Narrative Exam Narrative: Alert and oriented, well-nourished, well-developed, no acute distress Regular rate and rhythm, no murmurs Clear to auscultation bilaterally Warm without edema Right hemianopsia, 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 Bilateral carotid ultrasounds with less than 50% disease bilaterally. Echocardiogram results detailed above. Labs 09/08/25 04:45 09/08/25 04:45 Labs: Laboratory Results - last 24 hr 09/07/25 09/07/25 09/08/25 08:20 14:46 04:45 WBC 11.8 H RBC 4.46 Hgb 13.2 Hct 38.4 MCV 86.1 MCH 29.7 MCHC 34.5 RDW 12.4 Plt Count 333 Neut % (Auto) 67.6 Lymph % (Auto) 24.1 L Ransom % (Auto) 6.8 Eos % (Auto) 0.7 L Baso % (Auto) 0.8 Neut # (Auto) 8000 H Lymph # (Auto) 2900 Ransom # (Auto) 800 Eos # (Auto) 100 Baso # (Auto) 100 Sodium 136 L Potassium 4.1 Chloride 99 Carbon Dioxide 30 BUN 18 H Creatinine 0.65 Estimated GFR > 60 BUN/Creatinine Ratio 27.7 H Glucose 100 H Hemoglobin A1c 5.6 Calcium 10.3 H Total Bilirubin 0.8 AST 36 ALT 33 Alkaline Phosphatase 74 Troponin I 0.473 H* 0.271 H* Total Protein 7.3 Albumin 4.3 Globulin 3.0 Albumin/Globulin Ratio 1.4 Triglycerides 187 H Cholesterol 260 H LDL Cholesterol, Calc 158 H HDL Cholesterol 65 H PFSH Medical History Hypertension Surgical History Hx of colonoscopy Social History household members: none Smoking Status: Former smoker alcohol intake: current Discharge Plan Discharge Plan Patient Disposition: Home Health Service Transfer to: Home Health, Other Provider Discharge Comment: 1) Do not take lisinopril-hctz. 2) Start metoprolol on 09/15/25. 3) Take plavix (clopidogrel) for two weeks and then stop. 4) Continue aspirin indefinitely. Discharge orders & Medications Prescriptions: New atorvastatin 20 mg Tablet 80 mg PO BEDTIME Qty: 30 0RF clopidogrel 75 mg Tablet 75 mg PO DAILY 14 Days Qty: 14 0RF aspirin [Enteric Coated Aspirin] 81 mg tablet,delayed release (DR/EC) 81 mg PO DAILY Qty: 90 0RF metoprolol tartrate 25 mg tablet 25 mg PO BID Qty: 60 0RF Discontinued lisinopril-hydrochlorothiazide 20-25 mg tablet 1 tab PO DAILY Patient Comments: take 1 tablet by mouth once daily for blood pressure CONTROL Follow up/Referrals: Deion Dominique DO [Primary Care Provider, Family Practice] Diet/Activity/Treatments Diet: Diet as Tolerated Activity: As tolerated Visit Report/Discharge Packet Stand Alone Forms: [employer], Patient Portal/API, Stroke Signs & Symptoms, Influenza Vaccine Info, Notice of Privacy Practices, Inpatient vs Outpatient, Pneumococcal Vaccine Info, Pt. Rights & Responsibilities Discharge Data Primary Care Provider: Deion Dominique Quality Stroke Contraindication Not Initiating IV-Tpa: Not indicated
--- NOTE | 2025-09-08 13:30 | PC.NURSE ---
Pt is dressed and ready for discharge home with family. IV and Tele have been removed. Went over d/c instructions with Pt and Family-discussed d/c meds, time of last dose, reviewed stroke education, discussed awareness of stroke symptoms and getting to the ER right away if new symptoms occur, discussed awareness of increased bleeding risk with Plavix and ASA, discussed starting Metoprolol and getting up slowly from laying or sitting positions, discussed awareness of decreased peripheral vision and right sided vision, discussed no driving until cleared by her PCP, discussed follow up with PCP. Pt and family denied further questions and Pt was taken out via w/c by RN to POV with Family and all belongings.
--- NOTE | 2025-09-08 14:29 | CM.DANOTE ---
Patient is a 70 yo female who was admitted INPT Status on 09/07/25 for CVA. Pt has [employer]F MED as primary and MCR A only secondary for insurance. Her PCP is Deion Dominique. EMR was reviewed. Per MD, pt with hx of left breast CA with lumpectomy and admitted for Acute CVA. Echo today and pending results and PT/OT/ST may be stable for d/c home today. Per OT/PT, pt impulsive and balance issues due to CVA and recommending home with 24/7 and HH vs outpt. Per ST, no deficits at this time. SW met bedside with pt and multiple family members and they confirm pt lives at home alone and typically drives and still works and does not use DME for ambulation. Pt has no hx of SNF or HH and confirms preference is home with family to stay and HH. Family confirms they can stay 24/7 at d/c. Provided HH Choice list and preference is [facility] Family aware that referral will need to be made to confirm they are contracted with pt's insurance. Made [facility] referral and requested review to confirm they can accept her insurance. F2F and HH orders completed. Plan; Patient to discharge home today via family POV and to stay with pt to provide assist at d/c and awaiting review by [facility] to confirm they can accept. 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 No Advance Directives No on File History Provided By Patient,Family Member,Medical Record Has Patient been No admitted in last 30 days? Prior Living House Arrangements Household Members none Type of Drives own vehicle transporation used prior to admit Independent with ADL Yes 's Is patient alert and Yes oriented? Caregiver for No Another Patient/Family Home with Home Health Preference Barriers to No Discharge Discharge Plan Home with Home Health Community Services Physical Therapy,Occupational Therapy,Home Health Nurse Referrals Initiated Home Health If patient plan is Yes home with home health: Has signed face to face form been completed? Medicare Choice List Yes Provided Medicare choice list patient,family reviewed on electronic tablet with SNF/HH Preference [facility] if they accept [employer] Whiteboard Updated Yes in Patient Room with name and ext. 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
--- NOTE | 2025-09-10 09:09 | CM.DPNOTE ---
Addendum entered by YOUSUF Tatum 09/10/25 10:16: ADD: Confirmation from Maurilio at [facility] that they are contracted with her insurance and can accept her on services and have her on their schedule now for SOC. BF Original Note: Return message from [facility] this AM stating they unfortunately are not contracted with her [employer] insurance and cannot accept. SW made new referral to [facility] as they are showing as accepting [employer] insurance and requested review to confirm they can accept and also sent F2F and orders. YOUSUF Tatum
== END 2025-09-08 13:34 | disposition home health service (06) ==
LOC: ED 11:20 → AC 09-08 07:41
PROVIDERS: Admitting Provider Internal Medicine; Emergency Provider Family Medicine; PCP Family Medicine; Referring Provider Family Medicine; Visit Provider Internal Medicine
DX: I63.9 Cerebral infarction, unspecified (principal); G81.91 Hemiplegia, unspecified affecting right dominant side; I10 Essential (primary) hypertension; R73.9 Hyperglycemia, unspecified; I25.10 Atherosclerotic heart disease of native coronary artery without angina pectoris; R79.89 Other specified abnormal findings of blood chemistry; R29.704 NIHSS score 4; Z85.3 Personal history of malignant neoplasm of breast; Z90.12 Acquired absence of left breast and nipple; Z87.891 Personal history of nicotine dependence
CPT/HCPCS: 36415; 70450; 70496; 70498; 70551; 71045; 80053; 80061; 80305; 81001; 82550; 82962; 83036; 84484; 85025; 85610; 85730; 92610; 93005; 93010; 93306; 93880; 96372; 96374; 97162; 97165; 97530; 99285; G0378; J1650; J2405; Q9957; Q9967